=== PATIENT | male | born 1935 | race Caucasian/White ===

== ENCOUNTER 2018-01-31 05:35 | Day surgery (SDC) | payer OTHER, MEDICARE ==
[~2018-01-31] VITALS: Ht 177.8 cm; Wt 85.4 kg
[~2018-01-31 05:35] MED LIST: ACET325 PO; AGGRENOX; AMLO10 PO; ASPI81EC PO; ATOR20 PO; BENZ100A PO; CETI5 PO; CHOL10002 PO; CLOP75 PO; DIPASPER PO; DOCU100 PO; DORZOPSO LEFTEYE; FURO40 PO; Flonase 0.05% N16 GM; LAMISIL AT30 GM TOP; LASIX; LATA.005SO BOTHEYES; LAVAP17G PO; LISI20 PO; LISINOPRIL; LOPRESSOR; METO50 PO; MULVITMIND PO; Micro-K10 MEQ PO; NIFEDIPINE; NORT25 PO; OMEPRAZOLE; OXYB5 PO; OXYBUTYNIN; PANT40 PO; PYRI100 PO; RISP.5 PO; SIMBRINZA 1%-0.28 ML OP; SIMV40 PO; SPIR25 PO; TERA5 PO; TERAZOSIN; TRAV.004OP OU; Vitamin B-121000 MCG PO; WARF5 PO; [UNRECOGNIZED DRUG - OTHER]; [UNRECOGNIZED DRUG - OTHER] BOTHEYES
[2018-01-31 06:37] LABS: BASOPHILS ABSOLUTE AUTO 0.03 K/mm3 (0.00-0.23); BASOPHILS PERCENT AUTO 1 % (0-2); EOSINOPHILS ABSOLUTE AUTO 0.21 K/mm3 (0.00-0.68); EOSINOPHILS PERCENT AUTO 5 % (0-6); Hematocrit 35.6 % (37.0-53.0); IMMATURE GRAN ABSOLUTE AUTO 0.01 K/mm3 (0.00-0.10); IMMATURE GRAN PERCENT AUTO 0 % (0-1); LYMPHOCYTES ABSOLUTE AUTO 0.89 K/mm3 (0.84-5.20); LYMPHOCYTES PERCENT AUTO 21 % (21-46); MONOCYTES ABSOLUTE AUTO 0.54 K/mm3 (0.16-1.47); MONOCYTES PERCENT AUTO 13 % (4-13); Mean Corpuscular HGB 31.8 pg (26.0-34.0); Mean Corpuscular HGB Conc 33.7 g/dL (31.5-36.5); Mean Corpuscular Volume 94 fL (80-100); Mean Platelet Volume 9.9 fL (9.1-12.4); NEUTROPHILS ABSOLUTE AUTO 2.48 K/mm3 (1.96-9.15); NEUTROPHILS PERCENT AUTO 60 % (41-73); Platelet Count 122 K/mm3 (150-400); RDW Coefficient Variation 12.7 % (11.7-14.2); RDW Standard Deviation 43.9 fL (35.1-46.3); Red Blood Cell Count 3.77 M/mm3 (4.30-5.90); White Blood Cell Count 4.16 K/mm3 (4.00-11.30)
[2018-01-31 06:54] LABS: Bun/Creatinine Ratio 22.1 (12.0-20.0); Calcium, Blood 8.8 mg/dL (8.5-10.1); Creatinine, Blood 1.49 mg/dL (0.60-1.20); Potassium, Blood 4.3 mmol/L (3.5-5.5)
[2018-01-31 06:58] LABS: International Normalized Ratio 1.06
[2018-01-31] MEDS ORDERED: ESSENTIAL FATTY ACID PO (10:39)
[2018-02-02 04:39] LABS: International Normalized Ratio 1.11; Prothrombin Time Results 11.6 Sec (9.7-11.5)
== END 2018-02-02 13:41 | disposition home or self-care (01) ==
LOC: MHTC 05:35 → PCU 09:22 → MHTC 02-02 13:41
PROVIDERS: Internal Medicine Interventional Cardiology
PROC: 02HK3JZ Insertion of Pacemaker Lead into Right Ventricle, Percutaneous Approach (ICD-10-PCS; principal; 2018-01-31)
PROC: 0JH606Z Insertion of Pacemaker, Dual Chamber into Chest Subcutaneous Tissue and Fascia, Open Approach (ICD-10-PCS; principal; 2018-01-31)
PROC: 02H63JZ Insertion of Pacemaker Lead into Right Atrium, Percutaneous Approach (ICD-10-PCS; principal; 2018-01-31)
PROC: 02WA0MZ Revision of Cardiac Lead in Heart, Open Approach (ICD-10-PCS; 2018-02-01)
DX: I49.5 Sick sinus syndrome (principal); I45.5 Other specified heart block; T82.120A Displacement of cardiac electrode, initial encounter; R53.83 Other fatigue; I48.0 Paroxysmal atrial fibrillation; I48.92 Unspecified atrial flutter; G47.33 Obstructive sleep apnea (adult) (pediatric); E11.22 Type 2 diabetes mellitus with diabetic chronic kidney disease; I13.10 Hypertensive heart and chronic kidney disease without heart failure, with stage 1 through stage 4 chronic kidney disease, or unspecified chronic kidney disease; N18.3 Chronic kidney disease, stage 3 (moderate); I87.2 Venous insufficiency (chronic) (peripheral); E78.5 Hyperlipidemia, unspecified; Z79.899 Other long term (current) drug therapy; Z86.73 Personal history of transient ischemic attack (TIA), and cerebral infarction without residual deficits; Z90.5 Acquired absence of kidney; Z87.891 Personal history of nicotine dependence; Z95.2 Presence of prosthetic heart valve
CPT/HCPCS: 33208; 33215; 36415; 71045; 80048; 85025; 85610; 94762; 99152; 99153; C1781; C1785; C1898; J0690; J1644; J2250; J2405; J3010; J7030; J7040

== ENCOUNTER 2019-11-13 06:54 | Day surgery (SDC) | payer OTHER ==
[~2019-11-13] VITALS: Ht 177.8 cm; Wt 93.9 kg
[~2019-11-13 06:54] MED LIST changes: +ELIQUIS2.5 MG; +ESSENTIAL FATTY ACID PO
[2019-11-13] MEDS ORDERED: METOPROLOL ER-1 EAC1 (07:46)
== END 2019-11-13 09:33 | disposition home or self-care (01) ==
LOC: ORSCSDS 06:54
PROVIDERS: Internal Medicine Gastroenterology
PROC: 0DBK8ZX Excision of Ascending Colon, Via Natural or Artificial Opening Endoscopic, Diagnostic (ICD-10-PCS; principal; 2019-11-13 08:30)
PROC: 0DBL8ZX Excision of Transverse Colon, Via Natural or Artificial Opening Endoscopic, Diagnostic (ICD-10-PCS; principal; 2019-11-13 08:30)
PROC: 0DBP8ZX Excision of Rectum, Via Natural or Artificial Opening Endoscopic, Diagnostic (ICD-10-PCS; principal; 2019-11-13 08:30)
DX: K92.1 Melena (principal); D12.3 Benign neoplasm of transverse colon; D12.2 Benign neoplasm of ascending colon; K62.1 Rectal polyp; K64.8 Other hemorrhoids; Z87.891 Personal history of nicotine dependence; E11.22 Type 2 diabetes mellitus with diabetic chronic kidney disease; I12.9 Hypertensive chronic kidney disease with stage 1 through stage 4 chronic kidney disease, or unspecified chronic kidney disease; N18.3 Chronic kidney disease, stage 3 (moderate); Z79.01 Long term (current) use of anticoagulants; Z79.84 Long term (current) use of oral hypoglycemic drugs; Z79.899 Other long term (current) drug therapy
CPT/HCPCS: 82947; 88305; J2405; J2704; J7120

== ENCOUNTER 2020-10-13 18:44 | Inpatient (IN) | payer OTHER, MEDICARE ==
[~2020-10-13] VITALS: Ht 177.8 cm; Wt 91.5 kg
[~2020-10-13 18:44] MED LIST changes: -AMLO10 PO; -CETI5 PO; -ELIQUIS2.5 MG; -FURO40 PO; -TERA5 PO; -Vitamin B-121000 MCG PO
[2020-10-13 21:35] LABS: BASOPHILS ABSOLUTE AUTO 0.03 K/mm3 (0.00-0.23); BASOPHILS PERCENT AUTO 1 % (0-2); EOSINOPHILS ABSOLUTE AUTO 0.04 K/mm3 (0.00-0.68); EOSINOPHILS PERCENT AUTO 1 % (0-6); Hematocrit 28.9 % (37.0-53.0); Hemoglobin 9.8 g/dL (13.5-17.5); IMMATURE GRAN ABSOLUTE AUTO 0.04 K/mm3 (0.00-0.10); IMMATURE GRAN PERCENT AUTO 1 % (0-1); LYMPHOCYTES ABSOLUTE AUTO 0.69 K/mm3 (0.84-5.20); LYMPHOCYTES PERCENT AUTO 15 % (21-46); MONOCYTES PERCENT AUTO 7 % (4-13); Mean Corpuscular HGB 31.8 pg (26.0-34.0); Mean Corpuscular HGB Conc 33.9 g/dL (31.5-36.5); Mean Corpuscular Volume 94 fL (80-100); Mean Platelet Volume 9.2 fL (9.1-12.4); NEUTROPHILS ABSOLUTE AUTO 3.48 K/mm3 (1.96-9.15); NEUTROPHILS PERCENT AUTO 76 % (41-73); Platelet Count 100 K/mm3 (150-400); RDW Coefficient Variation 12.2 % (11.7-14.2); RDW Standard Deviation 42.1 fL (35.1-46.3); Red Blood Cell Count 3.08 M/mm3 (4.30-5.90); White Blood Cell Count 4.58 K/mm3 (4.00-11.30)
[2020-10-13 21:52] LABS: Albumin, Blood 3.5 g/dL (3.4-5.0); Albumin/Globulin Ratio 1.4 (0.8-1.8); Bilirubin, Total 0.4 mg/dL (0.1-1.0); Bun/Creatinine Ratio 13.8 (12.0-20.0); Calcium, Blood 8.5 mg/dL (8.5-10.1); Creatinine, Blood 3.84 mg/dL (0.60-1.20); Globulin, Blood 2.5 g/dL (2.2-4.0); Potassium, Blood 4.4 mmol/L (3.5-5.5)
[2020-10-13] MEDS ORDERED: FURO20 PO (22:48)
[2020-10-13] MEDS ORDERED: AMLO10 PO (22:48)
[2020-10-13] MEDS ORDERED: Terazosin HCl10 MG PO (22:53)
[2020-10-13] MEDS ORDERED: Vitamin B-121000 MCG PO (22:53)
[2020-10-13] MEDS ORDERED: LISI20 PO (22:53)
[2020-10-13] MEDS ORDERED: ATOR20 PO (22:54)
[2020-10-13] MEDS ORDERED: ZYRTEC10 M2 PO (22:54)
[2020-10-13] MEDS ORDERED: ELIQUIS2.5 MG PO (22:54)
[2020-10-13] MEDS ORDERED: Lopressor 25 mg25 MG PO (22:55)
[2020-10-13] MEDS ORDERED: ONDA4ODT SL (22:56)
[2020-10-13] MEDS ORDERED: DORZOLAMIDE-TIM10 ML BOTHEYES (22:57)
[2020-10-14 05:40] LABS: BASOPHILS ABSOLUTE AUTO 0.01 K/mm3 (0.00-0.23); BASOPHILS PERCENT AUTO 0 % (0-2); EOSINOPHILS ABSOLUTE AUTO 0.06 K/mm3 (0.00-0.68); EOSINOPHILS PERCENT AUTO 1 % (0-6); Hematocrit 27.2 % (37.0-53.0); Hemoglobin 9.2 g/dL (13.5-17.5); IMMATURE GRAN ABSOLUTE AUTO 0.04 K/mm3 (0.00-0.10); IMMATURE GRAN PERCENT AUTO 1 % (0-1); LYMPHOCYTES ABSOLUTE AUTO 0.54 K/mm3 (0.84-5.20); LYMPHOCYTES PERCENT AUTO 7 % (21-46); MONOCYTES ABSOLUTE AUTO 0.57 K/mm3 (0.16-1.47); MONOCYTES PERCENT AUTO 7 % (4-13); Mean Corpuscular HGB 31.9 pg (26.0-34.0); Mean Corpuscular HGB Conc 33.8 g/dL (31.5-36.5); Mean Corpuscular Volume 94 fL (80-100); Mean Platelet Volume 9.2 fL (9.1-12.4); NEUTROPHILS ABSOLUTE AUTO 6.48 K/mm3 (1.96-9.15); NEUTROPHILS PERCENT AUTO 84 % (41-73); Platelet Count 89 K/mm3 (150-400); RDW Standard Deviation 41.9 fL (35.1-46.3); Red Blood Cell Count 2.88 M/mm3 (4.30-5.90)
[2020-10-14 06:17] LABS: Bun/Creatinine Ratio 14.7 (12.0-20.0); Calcium, Blood 8.2 mg/dL (8.5-10.1); Creatinine, Blood 3.87 mg/dL (0.60-1.20); Potassium, Blood 4.6 mmol/L (3.5-5.5)
--- NOTE | 2020-10-14 06:27 | NUR ---
WIRE TINNER SUMMARY PT ADMITTED FROM ED. A&OX4, ABLE TO MAKE NEEDS KNOWN. PLEASANT AND COOPERATIVE TO CARE. MEDICATED FOR R HIP PAIN PER EMAR. NON WEIGHT BEARING ON RLE D/T R HIP FX. 2P MAX ASSIST. USES URINAL WITH ASSISTANCE. PT ON 2LPM O2 VIA NC. USES CPAP AT NIGHT. DENIES CP, SOB, OR N&V. BED AT LOWEST POSITION, CALL LIGHT WITHIN REACH.
--- NOTE | 2020-10-14 13:34 | NUR ---
Echocardiogram completed.
--- NOTE | 2020-10-14 17:58 | NUR ---
SHIFT SUMMARY- PT IS A/O, PLESANT AND COOPERATIVE. HE IS RECIEVING PAIN MEDICATIONS NEEDED. HE HAD AN ELEVATED TEMP AND WAS TREATED WITH TYLENOL. HE IS EATING AND DRINKING WELL. ORTHO CONSULLT TODAY, PLAN TO TAKE TO SURGERY TOMORROW. BLADDER SCAN SHOWED <250.
[2020-10-15 05:52] LABS: Hematocrit 25.4 % (37.0-53.0); Hemoglobin 8.7 g/dL (13.5-17.5); Mean Corpuscular HGB 32.3 pg (26.0-34.0); Mean Corpuscular HGB Conc 34.3 g/dL (31.5-36.5); Mean Corpuscular Volume 94 fL (80-100); Mean Platelet Volume 9.4 fL (9.1-12.4); Platelet Count 77 K/mm3 (150-400); RDW Coefficient Variation 12.4 % (11.7-14.2); RDW Standard Deviation 42.5 fL (35.1-46.3); Red Blood Cell Count 2.69 M/mm3 (4.30-5.90); White Blood Cell Count 5.37 K/mm3 (4.00-11.30)
[2020-10-15 06:13] LABS: Bun/Creatinine Ratio 15.4 (12.0-20.0); Creatinine, Blood 3.84 mg/dL (0.60-1.20); Potassium, Blood 4.3 mmol/L (3.5-5.5)
--- NOTE | 2020-10-15 10:16 | NUR ---
0940-PT HERE FOR PRE OP HOLDING. DR. FIGUEREDO HERE. COVID SWAB SENT TO LAB AND TYPE AND SCREEN DRAWN BY LAB
[2020-10-15 11:25] LABS: Influenza A, PCR Negative (NEGATIVE); Influenza B, PCR Negative (NEGATIVE); Resp Syncytial Virus, PCR Negative (NEGATIVE); SARS-Cov-2 (COVID-19) PCR, MMC Negative (NEGATIVE)
--- NOTE | 2020-10-15 11:28 | NUR ---
PT LEFT FOR PROCEDURE ON HIP. REPORT CALLED TO OCTAVIO WOOD ON SURGICAL FLOOR
--- NOTE | 2020-10-15 17:17 | NUR ---
SHIFT SUMMARY R HIP FX POD0, A/O X 4, VSS. ARRIVED TO UNIT @ 1315, SLEPT FOR FIRST 2 HOURS, TOLERATING PO, NO POST OP VOID YET. DENIES PAIN, ENCOURAGED TO REPORT WHEN PAIN STARTS SETTING IN. CALL LIGHT IN REACH, WILL CONTINUE TO MONITOR AND REPORT TO ONCOMING NOC RN.
--- NOTE | 2020-10-15 19:42 | NUR ---
10/14 [facility] SHIFT SUMMARY PT IS A 84 Y/O MALE, ADMITTED FOR A CLOSED R HIP FX. HE IS A&O X 4, CURRENTLY ON BEDREST. PT HAS BEEN NPO SINCE MIDNIGHT IN PREP FOR A SURGICAL REPAIR OF THE HIP FX. PT WAS MEDICATED 3X FOR PAIN WITH PRN IV DILAUDID, AND FREQUENTLY ASKED FOR PAIN MEDS BEFORE FALLING BACK ASLEEP. NO C/O NAUSEA OR SOB. PT REMAINED ON CPAP WHILE SLEEPING. SATS REMAINED > 91%. VITAL SIGNS STABLE. NO OTHER ACUTE CHANGES IN PT CONDITION NOTED. REPORT GIVEN TO ONCOMING RN. SHIFT SUMMARY DOCUMENTED LATE DUE TO [employer] ISSUES.
[2020-10-16 04:42] LABS: Hemoglobin 6.2 g/dL (13.5-17.5); Mean Corpuscular HGB 32.6 pg (26.0-34.0); Mean Corpuscular HGB Conc 34.6 g/dL (31.5-36.5); Mean Corpuscular Volume 94 fL (80-100); Mean Platelet Volume 9.4 fL (9.1-12.4); Platelet Count 76 K/mm3 (150-400); RDW Coefficient Variation 12.5 % (11.7-14.2); RDW Standard Deviation 43.3 fL (35.1-46.3)
[2020-10-16 04:58] LABS: Hematocrit 17.9 % (37.0-53.0)
[2020-10-16 05:05] LABS: Bun/Creatinine Ratio 15.3 (12.0-20.0); Calcium, Blood 7.6 mg/dL (8.5-10.1); Creatinine, Blood 3.92 mg/dL (0.60-1.20); Potassium, Blood 4.8 mmol/L (3.5-5.5)
--- NOTE | 2020-10-16 06:35 | NUR ---
LAB CALLED WITH CRITICAL HGB AND HCT THIS AM, DR MIRAMONTES WAS NOTIFIED AND ORDER FOR 1 U PRBCS. THAT IS TRANSFUSING NOW, NO ADVERS REACTIONS. PATIENT WAS ABLE TO STAND AT THE BEDSIDE TO VOID. HE USED A GAIT BELT AND A WALKER. HE FOLLOWS DIRECTIONS WELL. CALL LIGHT IN REACH. PATIENT IS VERY HUNGRY FOR BREAKFAST.
[2020-10-16 11:34] LABS: Hematocrit 22.9 % (37.0-53.0); Hemoglobin 7.6 g/dL (13.5-17.5)
--- NOTE | 2020-10-16 16:01 | NUR ---
Shift summary Tylenol and Oxycodone given once this shift for pain. Patient worked with physical therapy today and got up into the recliner chair with a one person assist. Bladder scan this afternoon showed 971. Straight catheter emptied 1020cc clear yellow urine. Call placed to hospitalist and order for Flomax and PRN straight cath/bladder scan obtained. Patient has been AOx4 and cooperative with care. Call light within patient reach.
--- NOTE | 2020-10-17 01:00 | NUR ---
PATIENT HAS BEEN HAVING AN INCREASE IN HIS PAIN AFTER BEING UP IN THE CHAIR FOR 3 HOURS. HE IS ALSO HAVING NAUSEA, CHILLS, AND NIGHT SWEATS. HE IS AFEBRILE. PATIENT WAS GIVEN NARCOTICS AND ZOFRAN. PATIENT WAS REPOSITIONED SEVERAL TIMES TO GET HIM COMFORTABLE..
--- NOTE | 2020-10-17 05:16 | NUR ---
PATIENT HAS NOW BEEN ASLEEP FOR 4 HOURS, WE WILL CHECK HIS BLADDER VIA THE SCANNER AND SEE IF HE NEEDS TO BE STRAIGHT CATHED AGAIN THIS SHIFT. NO ACUTE CHANGES. CALL LIGHT IN REACH.
[2020-10-17 06:17] LABS: Hematocrit 21.5 % (37.0-53.0); Hemoglobin 7.1 g/dL (13.5-17.5); Mean Corpuscular HGB 31.4 pg (26.0-34.0); Mean Corpuscular Volume 95 fL (80-100); Mean Platelet Volume 9.4 fL (9.1-12.4); Platelet Count 85 K/mm3 (150-400); RDW Coefficient Variation 12.9 % (11.7-14.2); RDW Standard Deviation 44.3 fL (35.1-46.3); Red Blood Cell Count 2.26 M/mm3 (4.30-5.90); White Blood Cell Count 5.13 K/mm3 (4.00-11.30)
[2020-10-17 06:31] LABS: Bun/Creatinine Ratio 16.9 (12.0-20.0); Creatinine, Blood 3.79 mg/dL (0.60-1.20); Potassium, Blood 4.4 mmol/L (3.5-5.5)
[2020-10-17 16:44] LABS: BASOPHILS ABSOLUTE AUTO 0.03 K/mm3 (0.00-0.23); BASOPHILS PERCENT AUTO 0 % (0-2); EOSINOPHILS ABSOLUTE AUTO 0.37 K/mm3 (0.00-0.68); EOSINOPHILS PERCENT AUTO 5 % (0-6); Hematocrit 23.5 % (37.0-53.0); Hemoglobin 7.9 g/dL (13.5-17.5); IMMATURE GRAN ABSOLUTE AUTO 0.05 K/mm3 (0.00-0.10); IMMATURE GRAN PERCENT AUTO 1 % (0-1); LYMPHOCYTES ABSOLUTE AUTO 0.82 K/mm3 (0.84-5.20); LYMPHOCYTES PERCENT AUTO 12 % (21-46); MONOCYTES ABSOLUTE AUTO 0.96 K/mm3 (0.16-1.47); MONOCYTES PERCENT AUTO 14 % (4-13); Mean Corpuscular HGB 32.2 pg (26.0-34.0); Mean Corpuscular HGB Conc 33.6 g/dL (31.5-36.5); Mean Corpuscular Volume 96 fL (80-100); Mean Platelet Volume 9.2 fL (9.1-12.4); NEUTROPHILS ABSOLUTE AUTO 4.59 K/mm3 (1.96-9.15); NEUTROPHILS PERCENT AUTO 67 % (41-73); Platelet Count 95 K/mm3 (150-400); RDW Coefficient Variation 12.9 % (11.7-14.2); RDW Standard Deviation 44.4 fL (35.1-46.3); Red Blood Cell Count 2.45 M/mm3 (4.30-5.90); White Blood Cell Count 6.82 K/mm3 (4.00-11.30)
--- NOTE | 2020-10-17 19:30 | NUR ---
SUMMARY NO ACUTE CHANGES T/O SHIFT. PT UP SEVERAL TIMES TO CHAIR AND TO STAND AND VOID AT BEDSIDE. PT VOIDING 75-180 ML AT A TIME. BS SHOWED LESS THAN 400 ML. MEDICATED PER ORDERS FOR PAIN T/O SHIFT. PT TOLERATING DIET. SOB W/EXERTION. PT HAS PRODUCTIVE COUGH, PT REPORTS SINUS DRAINAGE. USES CALL LIGHT APPROPRIATELY. CALL LIGHT IN REACH.
--- NOTE | 2020-10-18 02:00 | NUR ---
VOMITING AND ABD PAIN C/O N/V AT 2130HRS, STATED THAT HE THOUGHT IT WAS "HEARTBURN". ENTERED ROOM TO ASSESS, FOUND PT VOMITING INTO EMESIS BAG, 400ML CHARTED OUT. GIVEN ZOFRAN 4MG IVP. 0030HRS CALLED OUT C/O N/V, MD CONTACTED AND NEW ORDERS RECEIVED. MEDICATED WITH COMPAZINE PER MD ORDERS AND 200ML CHARTED OUT. 0200HRS, C/O ABD PAIN 6/10, AND N/V, GIVEN 0.2MG DILAUID AND PHENERGAN 25MG IVP PER MD ORDERS. SAFETY MEASURES IN PLACE. WILL CONTINUE TO MONITOR.
--- NOTE | 2020-10-18 04:30 | NUR ---
SHIFT SUMMARY LYING IN SEMI FOWLERS WITH EYES CLOSED. WOKE UP EARLIER AND TRIED TO GET OOB WITHOUT ASSISTANCE. NURSING ASSISTED PT OOB ABD STOOD AT EDGE OF BED TO USE URINAL. ASSISTED BACK TO BED AND REPOSITIONED FOR COMFORT. REMINANT VOMIT IN CHEN CLEANED AND GOWN CHANGED. INCREASED ABDOMINAL FIRMNESS NOTED. STATES LAST BM WAS ON THE . WILL GET BOWEL REGIMIN STARTED THIS AM. DENIES PAIN, DISCOMFORT OF FURTHER NEEDS AT THIS TIME. SAFETY MEASURES IN PLACE. WILL CONTINUE TO MONITOR AND GIVE HAND OFF TO ONCOMING SHIFT USING SBAR.
[2020-10-18 04:47] LABS: Hematocrit 28.3 % (37.0-53.0); Hemoglobin 9.4 g/dL (13.5-17.5); Mean Corpuscular HGB 31.3 pg (26.0-34.0); Mean Corpuscular HGB Conc 33.2 g/dL (31.5-36.5); Mean Corpuscular Volume 94 fL (80-100); Mean Platelet Volume 9.1 fL (9.1-12.4); Platelet Count 127 K/mm3 (150-400); RDW Coefficient Variation 12.8 % (11.7-14.2); RDW Standard Deviation 44.1 fL (35.1-46.3); White Blood Cell Count 8.86 K/mm3 (4.00-11.30)
--- NOTE | 2020-10-18 12:01 | NUR ---
PT HAVING BURGUNDY RED, FOUL SMELLING EMESIS. SPOKE TO DR FORDE THIS MORNING REGARDING 500 ML RED EMESIS, ORDERS OBTAINED. PT HAD SECOND EPISODE OF 500 ML BURGUNDY RED EMESIS. PT LETHARGIC AND PALE. BP 124/67. HR 74. ORDERS PENDING.
[2020-10-18 12:39] LABS: Hemoglobin 8.7 g/dL (13.5-17.5)
--- NOTE | 2020-10-18 13:09 | NUR ---
REPORT GIVEN TO NINA ABEL IN ICU.
--- NOTE | 2020-10-18 13:58 | NUR ---
TRANSFER NOTE- PT TRANSFERRED TO ICU FROM SURGICAL FLOOR IN BED. 4 STAFF TRANSFERRED TO BED WITHOUT PROBLEMS. PT WITH EYES CLOSED, ANSWERS QUESTIONS EASILY, COOPERATIVE. NSR WITH PACS. BP STABLE. COLOR PALE, SKIN W/D. NAUSEATED. ABDOMEN LARGE, SOFT, NO BOWEL SOUNDS. DENIES NEED TO VOID. RIGHT HIP DRSG DI. JD HOSE ON, SCDS ON. RESPIRATIONS UNLABORED, AFEBRILE
--- NOTE | 2020-10-18 14:46 | NUR ---
POWER GLIDE PLACED BY ESTEPHANIA WOOD. UPDATE TO DR. FORDE. PT NAUSEATED. ORDERS FOR ZOFRAN, NG PLACEMENT. NG PLACED LEFT NARE-AIR BOLUS HEARD OVER STOMACH, BLOODY DRAINAGE, LARGE AMOUNT BEING SUCTIONED. HAD EMESIS DURING PLACMENT OF GASTRIC CONTENTS-ABOUT 200 CC BLOODY EMESIS. VSS. LABS SENT
--- NOTE | 2020-10-18 14:53 | NUR ---
UPDATE TO DR. FORDE-NGT DRAINAGE 60 CC, CONTINUES TO DRAIN. PT RESTING NOW, VSS. AWAITING LABS
[2020-10-18 15:21] LABS: Albumin, Blood 2.4 g/dL (3.4-5.0); Albumin/Globulin Ratio 0.8 (0.8-1.8); Bilirubin, Total 0.5 mg/dL (0.1-1.0); Bun/Creatinine Ratio 17.4 (12.0-20.0); Calcium, Blood 8.4 mg/dL (8.5-10.1); Creatinine, Blood 3.68 mg/dL (0.60-1.20); Globulin, Blood 2.9 g/dL (2.2-4.0); Potassium, Blood 4.9 mmol/L (3.5-5.5); Total Protein, Blood 5.3 g/dL (6.4-8.2)
[2020-10-18 15:26] LABS: Hemoglobin 8.2 g/dL (13.5-17.5)
--- NOTE | 2020-10-18 16:15 | NUR ---
STRAIGHT CATH DONE-TOLERATED WELL. STATES NAUSEA RESOLVED. NGT TO INTERMITTENT SUCTION-NOT DRAINING ANY MORE AFTER THE 1200 CC TOTAL. H/H DRAWN AND SENT. PT AWAKE, TALKING ON PHONE.
[2020-10-18 16:24] LABS: Hematocrit 24.5 % (37.0-53.0); Hemoglobin 8.1 g/dL (13.5-17.5)
--- NOTE | 2020-10-18 17:04 | NUR ---
BLOOD COUNT STABLE. VSS. CONTINUE TO MONITOR
--- NOTE | 2020-10-18 18:31 | NUR ---
LABS CALLED TO DR. FORDE. H/H STABLE. NO FURTHER S/S BLEEDING. ABDOMEN LARGE BUT SOFT. NAUSEA RESOLVED. REPOSITIONED. DENIES COMPLAINTS EXCEPT DRY MOUTH-ORAL CARE DONE. VSS. LABS TO BE REPEATED AT 2030
--- NOTE | 2020-10-18 20:00 | NUR ---
ASSUMED CARE AFTER BEDSIDE REPORT. PT ALERT, CO BACK & HIP PAIN. PT IS NP0 AND NO PAIN MEDS AVAIL. SPOKE Erasmo LOPEZ NP AND ORDER REC'D FOR DILAUDID 0.5MG. NG TO LIZZIE RAE. VSS, ON RA, COUGH & DEEP BREATHING ENCOURAGED.
[2020-10-18 20:49] LABS: Hematocrit 22.2 % (37.0-53.0); Hemoglobin 7.4 g/dL (13.5-17.5)
--- NOTE | 2020-10-18 22:00 | NUR ---
H+H BACK, WILL RECHECK AT MIDNOC. BLADDER SCAN 360CC, WILL STRAIGHT CATH IF NO VOID.
[2020-10-19 00:35] LABS: Hematocrit 21.4 % (37.0-53.0); Hemoglobin 7.1 g/dL (13.5-17.5)
--- NOTE | 2020-10-19 01:20 | NUR ---
ORDER REC'D TO TRANSFUSE 1 UNIT PRBC. NG HAS DRAINED 900ML OF DK MAROON, FOUL ODOR DRNG. PT IS NOTED TO PASS FLATUS, NO STOOL. NG TUBE REDRESSED/SECURED. PT ACKNOWLEDGED THAT HE HAD PARTIALLY REMOVED R HIP DRSG. UNABLE TO REPLACE, SITE CLEANSED W CHLORHEXADINE AND SURGICAL DRSG APPLIED. INCISION WO REDNESS OR INFLAMMATION, WELL APPROX. BOOKER CATH PLACED WO DIFF. PT CALLS OFTED FOR REPOSITIONING, ABLE TO REACH & ASSIST W TURNS.
[2020-10-19 05:46] LABS: Source, Urine Catheter
[2020-10-19 05:49] LABS: Hematocrit 24.3 % (37.0-53.0); Hemoglobin 8.2 g/dL (13.5-17.5); Mean Corpuscular HGB 31.7 pg (26.0-34.0); Mean Corpuscular HGB Conc 33.7 g/dL (31.5-36.5); Mean Corpuscular Volume 94 fL (80-100); Platelet Count 139 K/mm3 (150-400); RDW Coefficient Variation 13.1 % (11.7-14.2); RDW Standard Deviation 44.4 fL (35.1-46.3); Red Blood Cell Count 2.59 M/mm3 (4.30-5.90); White Blood Cell Count 8.85 K/mm3 (4.00-11.30)
[2020-10-19 05:54] LABS: Appearance, Urine Clear (Clear); Bilirubin, Urine Neg (Neg); Blood, Urine 2+ (Neg); Color, Urine Yellow (P-Yellow); Glucose Qualitative, Urine Neg (Neg); Ketones, Urine Neg (Neg); Leukocyte Esterase, Urine Neg (Neg); Nitrite, Urine Neg (Neg); Protein, Urine 3+ (Neg); Urobilinogen, Urine NORM (Normal)
--- NOTE | 2020-10-19 06:00 | NUR ---
PT HAS BEEN RESTFUL SINCE 0200. HAS HAD TOTAL 900ML DK DRNG FROM NG, BUT ONLY 100 ML SINCE APPROX 0100. STATES ABD IS LESS TENDER, AND NOTED PT HAS NOT CO PAIN, AND REQ ONLY 2 DOSES OF DILAUDED. NO OTHER CHANGE IN STATUS.
[2020-10-19 06:05] LABS: Amorphous Light (0-Heavy); Bacteria Few /hpf; Mucus Light (0-Heavy); Squamous Epithelial Cells Rare /hpf (Few); White Blood Cells, Urine 0-2 /hpf (0-5)
[2020-10-19 06:06] LABS: Albumin, Blood 2.2 g/dL (3.4-5.0); Albumin/Globulin Ratio 0.8 (0.8-1.8); Bilirubin, Total 0.7 mg/dL (0.1-1.0); Bun/Creatinine Ratio 17.4 (12.0-20.0); Calcium, Blood 8.4 mg/dL (8.5-10.1); Creatinine, Blood 3.85 mg/dL (0.60-1.20); Globulin, Blood 2.7 g/dL (2.2-4.0); Potassium, Blood 4.8 mmol/L (3.5-5.5); Total Protein, Blood 4.9 g/dL (6.4-8.2)
[2020-10-19 06:28] LABS: BAND PERCENT MAN 23 % (0-8); BASOPHILS PERCENT MAN 0 % (0-2); EOSINOPHILS ABSOLUTE MAN 0.08 K/mm3 (0.00-0.68); EOSINOPHILS PERCENT MAN 1 % (0-6); LYMPHOCYTES ABSOLUTE MAN 0.61 K/mm3 (0.84-5.20); LYMPHOCYTES PERCENT MAN 7 % (21-46); MONOCYTES ABSOLUTE MAN 1.06 K/mm3 (0.16-1.47); MONOCYTES PERCENT MAN 12 % (4-13); NEUTROPHILS ABSOLUTE MAN 7.08 K/mm3 (1.96-9.15); SEG NEUTROPHILS PERCENT MAN 57 % (41-73); TOTAL CELLS COUNTED 100
--- NOTE | 2020-10-19 08:10 | NUR ---
ASSUMED CARE PT. ALERT AND ORIENTED THIS AM, ASSISTED TO REPOSITION FOR COMFORT. PT. REFUSES PAIN MEDICINE AT THIS TIME. PT. NOTED TO HAVE INCREASED WOB, COARSE T/O. CONCERNS FOR ASPIRATION. DR. FORDE NOTIFIED, PLANS FOR CHEST XRAY. PT. CONITNUES WITH DARK BROWN/MAROON LIQUID FROM OG TUBE. PT. ABD SOFT, DENIES PAIN WITH PALPATION. REMAINS ON PROTONIX GTT THIS AM. VSS AT THIS TIME. CALL LIGHT IN REACH.
--- NOTE | 2020-10-19 10:54 | NUR ---
ROUNDED ON PT RESTING COMFORTABLY IN BED. AWAITING GI CONSULT
[2020-10-19 12:57] LABS: Hematocrit 24.5 % (37.0-53.0); Hemoglobin 8.1 g/dL (13.5-17.5)
--- NOTE | 2020-10-19 17:08 | NUR ---
SHIFT SUMMARY ASSUMED CARE OF PT AT 1100. REPORT FROM JANETT WOOD. PT A&OX 3. ANSWERS QUESTIONS APPROPRIATELY, FOLLOWS COMMANDS. PT C/O INTERMITTANT NAUSEA AND RIGHT HIP PAIN. MEDICATED c ZOFRAN AND DILAUDID ORDERED c GOOD RELIEF. PROTONIX GTT CONTINUES TO INFUSE. MINIMAL OUTPUT FROM NGT THIS SHIFT. NO BM. VSS. 725 ML CLEAR YELLOW URINE OUT, CATH PATENT AND DRAINING TO GRAVITY. WILL CONTINUE TO MONITOR UNTIL REPORT TO ONCOMING NURSE.
--- NOTE | 2020-10-19 19:05 | NUR ---
ASSUMED PT CARE BEDSIDE REPORT WITH TAMIKO WOOD AT 1855. ASSUMED PT CARE. PT ALERT AND ORIENTED. PLEASANT. PT ON RA, SATS >92%, LUNG SOUNDS COARSE. OCCASIONAL PRODUCTIVE COUGH. PT CPAP AT BEDSIDE BUT PT STATES SINCE HE IS SITTING UP HE DOESNT NEED IT. HR SR 80S, BP STABLE. SKIN PALE, GROSSLY INTACT. SURGICAL SITE TO RIGHT HIP FROM HEMIARTHROPLASTY. DRESSING C/D/I. PT MOVES ALL EXTREMITIES, LIMITED TO RIGHT LEG DUE TO SURGERY. PT WORKING WITH PT/OT DURING DAY. PULSES INTACT. NO EDEMA. NG TO RIGHT NARE TO LIS, DARK GREENISH OUTPUT TO TUBING. BOWEL TONES PRESENT. ABD SOFT. BOOKER DRAINING CLEAR YELLOW URINE. 22G TO RIGHT HAND, SL, FLUSHES WELL, DRESSING C/D/I. POWER GLIDE TO LEFT UPPER ARM WITH NS INF @ 100ML/HR AND PROTONIX INF @ 10ML/HR. CALL LIGHT IN REACH, SIDE RAILS UP. SEE FULL SHIFT ASSESSMENT.
--- NOTE | 2020-10-19 20:00 | NUR ---
DR LUGO TO ROOM FOR EVAL. LABS ORDERED. PLAN FOR SCOPING TOMORROW.
[2020-10-20 04:53] LABS: Hematocrit 22.2 % (37.0-53.0); Hemoglobin 7.4 g/dL (13.5-17.5); Mean Corpuscular HGB 31.9 pg (26.0-34.0); Mean Corpuscular HGB Conc 33.3 g/dL (31.5-36.5); Mean Corpuscular Volume 96 fL (80-100); Mean Platelet Volume 8.3 fL (9.1-12.4); Platelet Count 157 K/mm3 (150-400); RDW Coefficient Variation 13.9 % (11.7-14.2); RDW Standard Deviation 47.6 fL (35.1-46.3); Red Blood Cell Count 2.32 M/mm3 (4.30-5.90); White Blood Cell Count 7.47 K/mm3 (4.00-11.30)
[2020-10-20 05:07] LABS: International Normalized Ratio 1.25; Prothrombin Time Results 13.2 Sec (9.7-11.5)
[2020-10-20 05:19] LABS: Albumin/Globulin Ratio 0.8 (0.8-1.8); Bilirubin, Total 0.3 mg/dL (0.1-1.0); Bun/Creatinine Ratio 18.4 (12.0-20.0); Calcium, Blood 8.4 mg/dL (8.5-10.1); Creatinine, Blood 3.64 mg/dL (0.60-1.20); Globulin, Blood 2.6 g/dL (2.2-4.0); Potassium, Blood 4.3 mmol/L (3.5-5.5); Total Protein, Blood 4.6 g/dL (6.4-8.2)
[2020-10-20 05:28] LABS: BAND PERCENT MAN 11 % (0-8); BASOPHILS PERCENT MAN 0 % (0-2); EOSINOPHILS ABSOLUTE MAN 0.29 K/mm3 (0.00-0.68); EOSINOPHILS PERCENT MAN 4 % (0-6); LYMPHOCYTES ABSOLUTE MAN 0.44 K/mm3 (0.84-5.20); LYMPHOCYTES PERCENT MAN 6 % (21-46); MONOCYTES ABSOLUTE MAN 1.41 K/mm3 (0.16-1.47); MONOCYTES PERCENT MAN 19 % (4-13); MYELOCYTE ABSOLUTE MAN 0.07 K/mm3 (0.00-0.00); MYELOCYTE PERCENT MAN 1 % (0-0); NEUTROPHILS ABSOLUTE MAN 5.22 K/mm3 (1.96-9.15); SEG NEUTROPHILS PERCENT MAN 59 % (41-73); TOTAL CELLS COUNTED 100
--- NOTE | 2020-10-20 05:42 | NUR ---
SHIFT SUMMARY PT HAD WONDERFUL SHIFT. REMAINED ALERT AND ORIENTED. OCCASSIONAL ABD PAIN, HIP/GROIN PAIN. MANAGED WITH REPOSITIONING AND DILAUDID. PT HAD SOME NAUSEA. TREATED WITH ZOFRAN. NO EMESIS. 1450 ML GREENISH/MAROON DRAINAGE FROM NG TUBE. SKIN PALE, DRY AND INTACT ASIDE FROM SURGICAL DRESSING TO RIGHT HIP (ADHESIVE DRESSING INTACT). TOLERATES ICE CHIPS. PT MOVES ALL EXTREMITIES INDEPENDENTLY, WEAKNESS AND DECREASED ROM TO RIGHT LEG S/P HEMIARTHROPLASTY. PULSES EQUAL. BP STABLE. HR SR 78. RA SATS >92%, LUNG SOUNDS COARSE THROUGHOUT. OCCASSIONAL PRODUCTIVE COUGH. ABD SOFT, BOWEL TONES ACTIVE. POWER GLIDE TO LEFT UPPER ARM INTACT, DRESSING C/D/I, UNABLE TO DRAW BLOOD. PLAN FOR UPPER GI TODAY BY DR LUGO. NS INFUSING @ 100ML/HR AND PROTONIX INFUISNG AT 10ML/HR. CALL LIGHT IN REACH. WILL REPORT TO ONCOMING SHIFT.
--- NOTE | 2020-10-20 08:00 | NUR ---
INITIAL ASSESSMENT PATIENT ALERT AND ORIENTED X 4, AFEBRILE. PATIENT DENIES PAIN. PATIENT ABLE TO HELP WITH REPOSITIONING. WEIGHT BEARING TOLERATED TO CLOSED FRACTURED R HIP. PATIENT SATTING 90% AND GREATER ON RA. PATIENT WEARS CPAP AT HOME AT NIGHT. LUNGS CLEAR T/O. PATIENT IN SR WITH OCCASIONAL PACS AND PVCS. HR 60S TO 80S. SBP 140S TO 150S. ANTI-EMBOLISM STOCKINGS IN PLACE. ABDOMEN MODERATELY DISTENDED, SOFT, WITH HYPERACTIVE BS NOTED. NG TO LIS; DRAINAGE BROWN/ GREEN IN COLOR. PATIENT DENIES NAUSEA. DATE OF LAST BM UNKNOWN. PATIENT NPO FOR PENDING EGD THIS AM. BOOKER IN PLACE DRAINING YELLOW COLORED URINE. SKIN PALE AND DRY. DRESSING TO R HIP CLEAN, DRY, INTACT. SCAR NOTED TO MID CHEST. COCCYX REDDENED. NS INFUSING AT 100 MLS/ HOUR. PROTONIX INFUSING AT 10 MLS/ HOUR. BED LOW, CALL LIGHT IN REACH. WILL CONTINUE TO MONITOR PATIENT FREQUENTLY THROUGHOUT SHIFT.
--- NOTE | 2020-10-20 08:45 | NUR ---
DR. FORDE HERE TO SEE PATIENT. DOCTOR INFORMED THAT TOPPIECE CHOPPER RN STATED PATIENT HAD 1400 MLS OF DRAINAGE FROM NG TUBE. INFORMED THAT COLOR IS BROWN/ GREEN IN COLOR AND THAT TOPPIECE CHOPPER RN REPORTS IT SMELLS LIKE STOOL. DOCTOR INFORMED THAT HEMOGLOBIN OF 7.4. NO ORDERS OBTAINED AT THIS TIME.
--- NOTE | 2020-10-20 11:22 | NUR ---
Patient confirms NPO status and agrees with scheduled surgery. INTRODUCED STAFF TO PATIENT AND BEGAIN ADMISSION PROCESS FOR PROCEDURE.
--- NOTE | 2020-10-20 11:48 | NUR ---
10/20/20 1148 Daquan Mcneil PATIENT DETERMINED TO BE ASA APPROPRIATE FOR PROPOFOL SEDATION PRIOR TO START OF PROCEDURE BY DR. PARISH Brian Block Placed3-LEAD EKG REVIEWED WITH PHYSICIAN PRIOR TO START OF PROCEDURE.History, Chart, Medications and Allergies reviewed before start of procedure.MONITOR INTACT WITH CONTINUOUS PULSE OXIMETRY AND INTERMITTENT BP.O2 VIA N/C INTACT THROUGHOUT SEDATION/PROCEDURE.
--- NOTE | 2020-10-20 12:40 | NUR ---
EGD PERFORMED BY DR. LUGO. NO INTERVENTIONS PERFORMED. DOCTOR REMOVED NG DURING PROCEDURE AND DOES NOT WANT ANOTHER PUT BACK IN. DOCTOR STATED THAT PATIENT CAN HAVE WATER AND ICE CHIPS ONLY. DOCTOR ORDERED REGLAN TO HELP WITH GI MOTILITY AND ILEUS. DOCTOR ALSO RECOMMENDED TO DECREASE ADMINISTRATION OF PAIN MEDICATIONS TO HELP WELL. DR. FORDE UPDATED ON STATUS.
--- NOTE | 2020-10-20 13:27 | NUR ---
PATIENT RESTING QUIETLY IN BED. PATIENT AFEBRILE. NO COMPLAINTS OF PAIN. SCHEDULED REGLAN GIVEN. IV PROTONIX DRIP DC'D. PATIENT DENIES NAUSA. PATIENT OCCASIONALLY PACED. HR IN THE 70S. SBP 1-TEENS TO 150S. NO OTHER ACUTE CHANGES TO NOTE ON AT THIS TIME.
--- NOTE | 2020-10-20 13:30 | NUR ---
SHIFT SUMMARY PATIENT HAS REMAINED ALERT AND ORIENTED X 4, AFEBRILE. PATIENT HAS HAD NO COMPLAINTS OF PAIN. PATIENT HAS REMAINED SATTING 90% AND GREATER ON RA. PATIENT HAS REMAINED OCCASIONALLY PACED, SR WITH OCCASIONAL PACS AND PVCS. HR 60S TO 80S. SBP 1-TEENS TO 150S. NG DC'D DURING SCOPE. NG DRAINED 400 MLS OF BROWN/ GREEN DRAINAGE BEFORE BEING REMOVED. REGLAN STARTED TO HELP WITH GI MOTILITY. NO BM THIS SHIFT. PATIENT ON WATER AND ICE ONLY AND WILL BE REASSESSED IN AM BY DR. LUGO. BOOKER DRAINED 600 MLS OF YELLOW COLORED URINE. NO CHANGE TO SKIN. DRESSING TO R HIP REMAINS CLEAN, DRY, INTACT. PROTONIX DRIP DC'D AND BID PROTONIX ORDERED. NS REMAINS INFUSING AT 100 MLS/ HOUR. NO INTERVENTION PERFORMED DURING SCOPE. PATIENT WILL BE TRANSFERRING TO SURGICAL FLOOR, ROOM 213 SHORTLY.
[2020-10-20 13:37] LABS: Hematocrit 23.7 % (37.0-53.0); Hemoglobin 7.6 g/dL (13.5-17.5)
--- NOTE | 2020-10-20 14:06 | NUR ---
REPORT GIVEN TO ASSUMING SURGICAL FLOOR NURSE.
--- NOTE | 2020-10-20 14:34 | NUR ---
PATIENT SUCCESSFULLY TRANSFERRED TO SURGICAL FLOOR.
--- NOTE | 2020-10-20 14:42 | NUR ---
TRANSFER PT TRANSERED TO UNIT FROM ICU AT APROX 1435. PT A/O X'S 4. LUNG SOUNDS DIM IN BASES, O2 SAT 90% ON RA. BOOKER PATENT, DRAINING CLEAR YELLOW URINE MEDIPORE DRESSING TO ANTERIOR R HIP C/D/I. PT REPORTS FULL SENSATION TO BLE. JD AREVALO + SCDS BLE.
[2020-10-21 04:15] LABS: Hematocrit 22.7 % (37.0-53.0); Hemoglobin 7.4 g/dL (13.5-17.5); Mean Corpuscular HGB 31.4 pg (26.0-34.0); Mean Corpuscular HGB Conc 32.6 g/dL (31.5-36.5); Mean Corpuscular Volume 96 fL (80-100); Mean Platelet Volume 8.4 fL (9.1-12.4); NRBC ABSOLUTE 0.02 K/mm3 (0.00-0.02); NRBC Auto 0.3 /100 WBC (0.0-0.2); Platelet Count 230 K/mm3 (150-400); RDW Coefficient Variation 14.2 % (11.7-14.2); RDW Standard Deviation 48.9 fL (35.1-46.3); Red Blood Cell Count 2.36 M/mm3 (4.30-5.90); White Blood Cell Count 7.93 K/mm3 (4.00-11.30)
[2020-10-21 04:32] LABS: Bun/Creatinine Ratio 17.7 (12.0-20.0); Calcium, Blood 8.3 mg/dL (8.5-10.1); Creatinine, Blood 3.45 mg/dL (0.60-1.20); Potassium, Blood 4.1 mmol/L (3.5-5.5)
--- NOTE | 2020-10-21 05:32 | NUR ---
SHIFT SUMMARY: EROS IS A&OX4. VSS, NO ACUTE EVENTS OVERNIGHT. BLADDER TRAINING COMPLETE THROUGH THE NIGHT, CATHETER PULLED THIS AM. HE REPORTS SENSATION OF BLADDER FULLNESS. HE STATES THAT HE URINATES SMALL AMOUNTS FREQUENTLY AT BASELINE. HE HAS BEEN COMPLAINING OF NAUSEA FOR WHICH HE HAS NOT GAINED RELIEF FROM ANY OF THE MEDICATIONS OR WITHOLDING PO INTAKE. HE DENIES PASSING FLATUS OR BM. ABDOMEN SOFT WITH POSITIVE BOWEL TONES. HE HAS BEEN TURNED AND REPOSITIONED FREQUENTLY, HE IS ABLE TO HELP WITH REPOSITIONING. POWERGLIDE TO MOLLY PATENT, LABS DRAWN FROM IT THIS AM. HE IS LYING IN BED WITH HIS CALL LIGHT IN REACH. WILL REPORT TO DAY SHIFT RN.
--- NOTE | 2020-10-21 17:04 | NUR ---
SUMMARY BLADDER SCAN 196 ML AT THIS TIME, PT DENIES FEELING NEED TO VOID PT STATES HE IS BELCHING AND PASSING FLATUS. PER IMPLEMENTATION MANAGER ODOROUS BELCHING SMELLED LIKE STOOL, PT STATES BELCHING IS LESSOUS THIS AFTERNOON COMPARED TO THIS MORNING. PT DENIES NAUSE, ABD NON TENDER TO PALPATION AND PER PT ABD IS ONLY MILDLY DISTENDED PT TAKING ICE CHIPS ONLY
[2020-10-22 04:16] LABS: BASOPHILS ABSOLUTE AUTO 0.04 K/mm3 (0.00-0.23); BASOPHILS PERCENT AUTO 0 % (0-2); Hematocrit 23.7 % (37.0-53.0); Hemoglobin 7.7 g/dL (13.5-17.5); LYMPHOCYTES ABSOLUTE AUTO 0.77 K/mm3 (0.84-5.20); LYMPHOCYTES PERCENT AUTO 8 % (21-46); MONOCYTES ABSOLUTE AUTO 1.26 K/mm3 (0.16-1.47); MONOCYTES PERCENT AUTO 13 % (4-13); Mean Corpuscular HGB 31.2 pg (26.0-34.0); Mean Corpuscular HGB Conc 32.5 g/dL (31.5-36.5); Mean Corpuscular Volume 96 fL (80-100); Mean Platelet Volume 8.3 fL (9.1-12.4); NRBC ABSOLUTE 0.03 K/mm3 (0.00-0.02); NRBC Auto 0.3 /100 WBC (0.0-0.2); Platelet Count 295 K/mm3 (150-400); RDW Coefficient Variation 14.1 % (11.7-14.2); RDW Standard Deviation 49.1 fL (35.1-46.3); Red Blood Cell Count 2.47 M/mm3 (4.30-5.90); White Blood Cell Count 10.05 K/mm3 (4.00-11.30)
[2020-10-22 04:18] LABS: EOSINOPHILS ABSOLUTE AUTO 0.15 K/mm3 (0.00-0.68); EOSINOPHILS PERCENT AUTO 2 % (0-6); IMMATURE GRAN ABSOLUTE AUTO 0.49 K/mm3 (0.00-0.10); IMMATURE GRAN PERCENT AUTO 5 % (0-1); NEUTROPHILS ABSOLUTE AUTO 7.34 K/mm3 (1.96-9.15); NEUTROPHILS PERCENT AUTO 73 % (41-73)
[2020-10-22 04:38] LABS: Albumin, Blood 2.2 g/dL (3.4-5.0); Albumin/Globulin Ratio 0.8 (0.8-1.8); Bilirubin, Total 0.4 mg/dL (0.1-1.0); Bun/Creatinine Ratio 19.2 (12.0-20.0); Calcium, Blood 8.5 mg/dL (8.5-10.1); Creatinine, Blood 3.34 mg/dL (0.60-1.20); Globulin, Blood 2.8 g/dL (2.2-4.0)
[2020-10-22 04:50] LABS: BAND PERCENT MAN 5 % (0-8); BASOPHILS PERCENT MAN 0 % (0-2); EOSINOPHILS PERCENT MAN 0 % (0-6); LYMPHOCYTES PERCENT MAN 4 % (21-46); METAMYELOCYTE PERCENT MAN 4 % (0-0); MONOCYTES PERCENT MAN 5 % (4-13); NEUTROPHILS ABSOLUTE MAN 8.74 K/mm3 (1.96-9.15); SEG NEUTROPHILS PERCENT MAN 82 % (41-73); TOTAL CELLS COUNTED 100
--- NOTE | 2020-10-22 04:50 | NUR ---
SHIFT SUMMARY: PT S/P R ZACARIAS HIP WITH MEDIPORE DRESSING IN PLACE. PT REPOSITIONED Q2 FOR COMFORT- PT ABLE TO ASSIST WITH REPOSITIONING. PT NAUSEATED THIS MORNING. PT REQUIRING LINEN CHANGE D/T LARGE AMOUNT OF GREEN EMESIS. EMESIS HAD A FOUL, STRONG ODOR. MEDICATED WITH REGLAN AND ZOFRAN WITH LITTLE EFFECT. PT REPORTS FEELING A LITTLE BETTER AFTER VOMITING. ABD DISTENDED AND FIRM. SUCTION AT BEDSIDE FOR SECRETIONS. PT ENCOURAGED SEVERAL TIMES TO COUGH AND USE INCENTIVE SPIROMETER. LUNGS COARSE THIS MORNING. COUGH IS WET AND CONGESTED BUT UNPRODUCTIVE. BIOX IN PLACE- O2 STABLE ON RA. PT VOIDING IN URINAL.
--- NOTE | 2020-10-22 06:43 | NUR ---
SPOKE WITH HOSPITALIST REGARDING HR IN 140'S. NEW ORDER FOR 5MG IV LOPRESSOR.
--- NOTE | 2020-10-22 10:50 | NUR ---
PT HR CONTINUES TO SUSTAIN IN 130-140 RANGE, SINUS TACHYCARDIA PER TELE SENIOR QC TECHNICIAN. 5MG IV LOPRESSOR HAS NOW BEEN GIVEN TWICE SINCE SHIFT START. SPOKE WITH DR. MIRAMONTES CONCERNING THIS WHEN SHE MADE HER ROUNDS AT ABOUT 0850 AND AGAIN AT THIS TIME. PT DENIES CHEST PAIN. BP STABLE, WILL CTM AND AWAIT ORDERS
[2020-10-22 12:56] LABS: Magnesium, Blood 2.5 mg/dL (1.6-2.4); Phosphorus, Blood 4.2 mg/dL (2.5-4.9)
--- NOTE | 2020-10-22 15:43 | NUR ---
TRANSFER: AT 1420 PT'S HR CONTINUED TO BE IN THE 140'S PER LEAD DIE MOLDER. PT ASYMPTOMATIC, ALL OTHER VSS. DR. MIRAMONTES NOTIFIED. ORDER TO TRANSFER TO PCU AND START PREET CHAIREZ. REPORT GIVEN TO MODESTO SUPERVISING CHEF. PT TRANSFERED AT ABOUT 1510 VIA BED WITH MYSELF AND ONLINE COMMUNITY MANAGER MARIA.
--- NOTE | 2020-10-22 16:28 | NUR ---
SHIFT NOTE PT ARRIVED FROM SURGICAL FLOOR WITH HR THAT VARIES FROM 110s-140s. PT IS ALERT, ANSWERS QUESTIONS APPROPRIATELY. PT STS THAT HE IS UNABLE TO PERFORM ADLs, PT WAS NOT NOTED TO ATTEMPT TO PERFORM ADLs. CARDIZEM DRIP WAS STARTED AT 5ML/HR AND TITRATED TO 10 AT THE TIME OF THIS NOTE. PT WITH FIRM ABD, WITH HYPOACTIVE B/T. PT WITH FOUL SMELLING SPUTUM THAT IS GREEN AND THICK. PT WITH WET COARSE LS T/O.
--- NOTE | 2020-10-22 20:31 | NUR ---
stopping dilt gtt now - hr sustained nsr. will continue to monitor. vss.
[2020-10-23 03:24] LABS: Source, Urine Catheter
[2020-10-23 03:30] LABS: Bilirubin, Urine Neg (Neg); Blood, Urine 1+ (Neg); Glucose Qualitative, Urine 1+ (Neg); Ketones, Urine 1+ (Neg); Leukocyte Esterase, Urine Neg (Neg); Nitrite, Urine Neg (Neg); Protein, Urine 3+ (Neg); Urobilinogen, Urine NORM (Normal)
[2020-10-23 03:34] LABS: Appearance, Urine Clear (Clear); Color, Urine Yellow (P-Yellow)
[2020-10-23 03:36] LABS: Amorphous Mod (0-Heavy); Bacteria Mod /hpf; Red Blood Cells, Urine 0-2 /hpf (0-2); Squamous Epithelial Cells Few /hpf (Few); White Blood Cells, Urine 0-2 /hpf (0-5)
[2020-10-23 03:37] LABS: Hyaline Casts 0-2 /lpf (0-2)
[2020-10-23 04:24] LABS: BASOPHILS ABSOLUTE AUTO 0.08 K/mm3 (0.00-0.23); BASOPHILS PERCENT AUTO 1 % (0-2); Hematocrit 28.5 % (37.0-53.0); Hemoglobin 9.2 g/dL (13.5-17.5); LYMPHOCYTES PERCENT AUTO 5 % (21-46); MONOCYTES ABSOLUTE AUTO 1.56 K/mm3 (0.16-1.47); MONOCYTES PERCENT AUTO 11 % (4-13); Mean Corpuscular HGB 31.3 pg (26.0-34.0); Mean Corpuscular HGB Conc 32.3 g/dL (31.5-36.5); Mean Corpuscular Volume 97 fL (80-100); Mean Platelet Volume 8.6 fL (9.1-12.4); NRBC ABSOLUTE 0.04 K/mm3 (0.00-0.02); NRBC Auto 0.3 /100 WBC (0.0-0.2); Platelet Count 343 K/mm3 (150-400); RDW Coefficient Variation 14.5 % (11.7-14.2); RDW Standard Deviation 50.2 fL (35.1-46.3); Red Blood Cell Count 2.94 M/mm3 (4.30-5.90); White Blood Cell Count 14.76 K/mm3 (4.00-11.30)
[2020-10-23 04:31] LABS: EOSINOPHILS ABSOLUTE AUTO 0.18 K/mm3 (0.00-0.68); EOSINOPHILS PERCENT AUTO 1 % (0-6); IMMATURE GRAN ABSOLUTE AUTO 0.39 K/mm3 (0.00-0.10); IMMATURE GRAN PERCENT AUTO 3 % (0-1); NEUTROPHILS ABSOLUTE AUTO 11.75 K/mm3 (1.96-9.15); NEUTROPHILS PERCENT AUTO 80 % (41-73)
[2020-10-23 04:45] LABS: Bun/Creatinine Ratio 19.2 (12.0-20.0); Calcium, Blood 8.8 mg/dL (8.5-10.1); Creatinine, Blood 3.38 mg/dL (0.60-1.20); Potassium, Blood 3.8 mmol/L (3.5-5.5)
[2020-10-23 04:48] LABS: BAND PERCENT MAN 14 % (0-8); BASOPHILS PERCENT MAN 0 % (0-2); EOSINOPHILS ABSOLUTE MAN 0.14 K/mm3 (0.00-0.68); EOSINOPHILS PERCENT MAN 1 % (0-6); LYMPHOCYTES ABSOLUTE MAN 0.59 K/mm3 (0.84-5.20); LYMPHOCYTES PERCENT MAN 4 % (21-46); METAMYELOCYTE ABSOLUTE MAN 0.59 K/mm3 (0.00-0.00); METAMYELOCYTE PERCENT MAN 4 % (0-0); MONOCYTES ABSOLUTE MAN 0.59 K/mm3 (0.16-1.47); MONOCYTES PERCENT MAN 4 % (4-13); NEUTROPHILS ABSOLUTE MAN 12.84 K/mm3 (1.96-9.15); SEG NEUTROPHILS PERCENT MAN 73 % (41-73); TOTAL CELLS COUNTED 100
--- NOTE | 2020-10-23 05:12 | NUR ---
SHIFT SUMMARY PT RESTLESS THROUGHOUT NIGHT - REMAINS UNCOMFORTABLE. PT ALERT AND ORIENTED, ABLE TO MAKE NEEDS KNOWN, BUT HARD TO UNDERSTAND. PT LUNG SOUNDS ARE CRACKLY, AND PT IS VERY CONGESTED. ENCOURAGED FREQUENT COUGHING TO CLEAR THROAT, BUT PT DOESNT DO STRONG DEEP COUGHS. PT COUGHS UP BRIGHT GREEN SPUTUM/EMESIS. FREQUENT DEEP SUCTIONING WITH MINIMAL RELIEF. BELLY REMAINS VERY DISTENDED, AND PT OFTEN COMPLAINS OF NAUSEA - SEE EMAR. PT BECAME VERY ANXIOUS AND LUNG SOUNDS SOUNDED WORSE, PT WAS REQUIRING 3-5L OF O2 VIA NC, WHEN PREVIOUSLY ON ROOM AIR. NOTIFIED MD OF NEW CHANGES, ORDERED BUMEX X1, DC FLUIDS IN HOPES TO ALLEVIATE RESP STATUS. SINCE PT HAD BEEN ON FLUIDS, LUNG SOUNDED CONGESTED/WET, AND BUMEX GIVEN, PT ONLY VOIDED 75ML ABOUT AN HOUR AFTER RECEIVING THE ABOVE. RN TO BLADDER SCAN PT - BLADDER SCAN READS 438ML - MD NOTIFIED AND ORDERED TO PLACE BOOKER FOR ACCURATE I/O AND TO HELP WITH RETENTION ISSUES PT ADMITS TO HAVING. BOOKER - 300ML UOP, UA SENT TO LAB - SEE RESULTS. PT HR CONVERTED TO NSR AT SHIFT CHANGE, AND HAS REMAINED IN NSR/STACH. DILT GTT TURNED OFF AT 1999. HR REMAINS BELOW 110'S. PT SAT UP ON EDGE OF BED TO HELP WITH BREATHING AND PRODUCTIVE COUGHING - SEEMED TO HELP SOME, PT NOW SELF SUCTIONING NEEDED. Q2 TURNING/REPOSITIONING. NO C/O PAIN. VITALS STABLE. CALL LIGHT WITHIN REACH, BED IN LOWEST POSITION, WILL CONTINUE TO MONITOR.
--- NOTE | 2020-10-23 11:51 | NUR ---
Call to Dr. Bashir regarding primary RN's two unsuccessful attempts to plce NGT; pt is having bleeding from his nares at this time. ORder for lidocaine to help with insertion as Dr. Bashir states that it is neccessary for the pt to have the NGT placed.
--- NOTE | 2020-10-23 12:33 | NUR ---
NG TUBE PLACED TO LEFT NARES PER VERBAL ORDER FROM DR. LUGO. CONFIRMATION WITH 2600 OUT OF GREEN GASTRIC CONTENTS AND XRAY.
--- NOTE | 2020-10-23 17:26 | NUR ---
TELEPHONE CALL TO DR. MIRAMONTES; HR 140 IN AFIB. TELEPHONE ORDER TO RESTART CARDIZEM. CARDIZEM DRIP STARTED AT 10ML/HR.
--- NOTE | 2020-10-23 17:39 | NUR ---
SHIFT SUMMARY; A/A/OX4 THROUGHOUT SHIFT TODAY. UP TO CHAIR AT BEDSIDE WITH PT. ABDOMEN DISTENDED AND FIRM AT BEGINNING OF SHIFT. NG TUBE PLACED PER ORDER FROM DR. LUGO. 3000ML GREEN LIQUID OUT. ABD ROUND SOFT AND NON TENDER AT THIS TIME. CARDIZEM DRIP RESTARTED AT 10ML/HR FOR GOING INTO AFIB WITH HR IN 140'S PER DR. MIRAMONTES. BLOOD PRESSURE STABLE. BOOKER CATH DRAINING CLEAR DARK YELLOW URINE. DRESSING TO RIGHT HIP SURGICAL SITE C/D/I. ASSISTED WITH REPOSITIONING THROUGHOUT DAY. 02 DC'D WITH SATS STAYING GREATER THAT 95% ON RA POST NG PLACEMENT. WILL CONTINUE TO MONITOR AND TREAT UNTIL CHANGE OF SHIFT.
[2020-10-24 04:33] LABS: Hematocrit 25.2 % (37.0-53.0); Hemoglobin 8.1 g/dL (13.5-17.5); Mean Corpuscular HGB 31.3 pg (26.0-34.0); Mean Corpuscular HGB Conc 32.1 g/dL (31.5-36.5); Mean Corpuscular Volume 97 fL (80-100); Mean Platelet Volume 8.7 fL (9.1-12.4); NRBC ABSOLUTE 0.03 K/mm3 (0.00-0.02); NRBC Auto 0.3 /100 WBC (0.0-0.2); Platelet Count 300 K/mm3 (150-400); RDW Coefficient Variation 14.7 % (11.7-14.2); RDW Standard Deviation 51.4 fL (35.1-46.3); Red Blood Cell Count 2.59 M/mm3 (4.30-5.90); White Blood Cell Count 11.33 K/mm3 (4.00-11.30)
[2020-10-24 04:48] LABS: Bun/Creatinine Ratio 18.8 (12.0-20.0); Calcium, Blood 8.6 mg/dL (8.5-10.1); Creatinine, Blood 3.99 mg/dL (0.60-1.20); Potassium, Blood 3.6 mmol/L (3.5-5.5)
[2020-10-24 05:40] LABS: BAND PERCENT MAN 11 % (0-8); BASOPHILS PERCENT MAN 0 % (0-2); EOSINOPHILS ABSOLUTE MAN 0.11 K/mm3 (0.00-0.68); EOSINOPHILS PERCENT MAN 1 % (0-6); LYMPHOCYTES ABSOLUTE MAN 1.13 K/mm3 (0.84-5.20); LYMPHOCYTES PERCENT MAN 10 % (21-46); MONOCYTES ABSOLUTE MAN 0.79 K/mm3 (0.16-1.47); MONOCYTES PERCENT MAN 7 % (4-13); NEUTROPHILS ABSOLUTE MAN 9.29 K/mm3 (1.96-9.15); SEG NEUTROPHILS PERCENT MAN 71 % (41-73); TOTAL CELLS COUNTED 100
--- NOTE | 2020-10-24 06:17 | NUR ---
SHIFT SUMMARY PT A&O x3 THROUGH SHIFT. VERY MILD CONFUSION WHEN FIRST WAKES UP. NG INTACT TO INTERMITTANT SUCTION, PATENT WITH DARK GREEN FLUID. APPROX 500 OUTPUT FOR SHIFT. NO RESP DISTRESS OBSERVED, O2 @ 2LPM VIA NC. HEART RHYTHM ATRIAL FLUTTER. RATE 140'S AT START OF SHIFT, NOW DOWN TO 101. CARDIZEM GTT REMAINS AT 15MG/HR. PT DENIED ANY CHEST PAIN. DRESSING TO RIGHT HIP CHANGED, MILD AMOUNT OF OLD DRAINAGE NOTED. SURGICAL INCISION HEALING NICELY, NO OPENINGS SEEN. URINARY CATH PATENT WITH YELLOW URINE.
--- NOTE | 2020-10-24 07:51 | NUR ---
PERMISSION TO GIVE CARE PT GAVE THIS STUDENT RN PERMISSION TO PROVIDE CARE 10/24
--- NOTE | 2020-10-24 08:27 | NUR ---
CARDIZEM TITRATED DOWN TO 10ML/HR PER DR. MIRAMONTES.
--- NOTE | 2020-10-24 13:00 | NUR ---
CONVERTED TO SINUS AT 1115. REMAINS ON IV CARDIZEM AT 5ML/HR PER DR. MIRAMONTES UNTIL PO MEDS CAN BE STARTED.
--- NOTE | 2020-10-24 17:47 | NUR ---
SHIFT SUMMARY; A/A/OX4 THROUGHOUT SHIFT. NGT TO LEFT NARE REMAINS IN PLACE. 400ML GREEN/BLACK OUTPUT. ABD ROUND AND SOFT. NO NAUSEA OR VOMITING DURING SHIFT. PT STATES HAS PASSED GAS A COUPLE TIMES DURING SHIFT. BT HYPOACTIVE X4 QUADS. HR CONVERTED TO SINUS AT APPROX 1115. CARIDZEM DRIP REMAINS AT 5ML/HR PER DR. MIRAMONTES UNTIL PO MEDS CAN BE STARTED. VSS, CLINIMEX STARTED TODAY AT 100ML/HR. UP TO CHAIR WITH ASSISTANCE X2 TODAY AND WORKED WITH PHYSICAL THERAPY. DRESSING TO RIGHT HIP SITE C/D/I CHANGED LAST NIGHT. JD HOSES BILATERALLY REMAIN IN PLACE. WILL CONTINUE TREAT AND MONITOR UNTIL CHANGE OF SHIFT.
[2020-10-25 04:21] LABS: BASOPHILS ABSOLUTE AUTO 0.03 K/mm3 (0.00-0.23); BASOPHILS PERCENT AUTO 0 % (0-2); EOSINOPHILS ABSOLUTE AUTO 0.44 K/mm3 (0.00-0.68); EOSINOPHILS PERCENT AUTO 4 % (0-6); Hematocrit 23.1 % (37.0-53.0); Hemoglobin 7.2 g/dL (13.5-17.5); IMMATURE GRAN ABSOLUTE AUTO 0.45 K/mm3 (0.00-0.10); IMMATURE GRAN PERCENT AUTO 4 % (0-1); LYMPHOCYTES ABSOLUTE AUTO 0.77 K/mm3 (0.84-5.20); LYMPHOCYTES PERCENT AUTO 7 % (21-46); MONOCYTES ABSOLUTE AUTO 0.89 K/mm3 (0.16-1.47); MONOCYTES PERCENT AUTO 8 % (4-13); Mean Corpuscular HGB 31.2 pg (26.0-34.0); Mean Corpuscular HGB Conc 31.2 g/dL (31.5-36.5); Mean Corpuscular Volume 100 fL (80-100); Mean Platelet Volume 8.9 fL (9.1-12.4); NEUTROPHILS ABSOLUTE AUTO 8.18 K/mm3 (1.96-9.15); NEUTROPHILS PERCENT AUTO 76 % (41-73); Platelet Count 290 K/mm3 (150-400); RDW Coefficient Variation 15.1 % (11.7-14.2); RDW Standard Deviation 54.4 fL (35.1-46.3); Red Blood Cell Count 2.31 M/mm3 (4.30-5.90); White Blood Cell Count 10.76 K/mm3 (4.00-11.30)
[2020-10-25 04:42] LABS: Albumin, Blood 2.1 g/dL (3.4-5.0); Albumin/Globulin Ratio 0.8 (0.8-1.8); Bilirubin, Total 0.4 mg/dL (0.1-1.0); Calcium, Blood 8.7 mg/dL (8.5-10.1); Creatinine, Blood 4.26 mg/dL (0.60-1.20); Globulin, Blood 2.6 g/dL (2.2-4.0); Magnesium, Blood 2.8 mg/dL (1.6-2.4); Phosphorus, Blood 4.3 mg/dL (2.5-4.9); Potassium, Blood 3.5 mmol/L (3.5-5.5); Total Protein, Blood 4.7 g/dL (6.4-8.2)
--- NOTE | 2020-10-25 05:06 | NUR ---
SHIFT SUMMARY A&Ox4 THOUGHOUT SHIFT. NG PATENT TO INTERMITTENT SUCTION, DARK GREEN DRAINAGE, APPROX 1000ML IN 12HR SHIFT. BOWEL SOUNDS HYPOACTIVE. NO RESP DISTRESS, O2@1LPM VIA N/C. TELEMETRY SINUS RHYTHM 60s, CARDIZEM GTT @5MG/HR IV. URINARY CATH TO GRAVITY DRAINAGE, DARK YELLOW URINE. DRESSING TO RIGHT HIP SURGICAL WOUND INTACT, NO DRAINAGE ON DRESSING. ASSISTED PT UP TO CHAIR @ 5AM, PT STEADY ON FEET.
[2020-10-25 13:22] LABS: Hematocrit 23.2 % (37.0-53.0); Hemoglobin 7.4 g/dL (13.5-17.5)
--- NOTE | 2020-10-25 17:33 | NUR ---
PT SUMMARY: PT REMAINS NPO, NGT REMAINS IN PLACE VIA INTERMITTENT SUCTION HAD 700MLS OUTPUT FOR THE SHIFT BLACK GREEN IN COLOR. VITALS REMAINED STABLE. DENIES ANY PAIN TODAY RIGHT HIP PAIN TOLERABLE WITH THERAPY TODAY, DENIES CHEST PAIN/SOB/SOB. NO NASUEA/EMESIS, PT REPORTED PASSING FLATUS WAS GIVEN BISACODYL SUPPOSITORY WITH NO RESULT YET PT REPORTED JUST FEELING THE URGE TO DEFECATE. PT REMAINS ON IV ABO. SUCTION AT BEDSIDE PRN, PT USES INDEPENDENTLY. NO OTHER ISSUES ENCOUNTERED FOR THE SHIFT. ABLE TO MAKE NEEDS KNOWN, CALLS APPROPRIATELY. WILL REPORT TO ONCOMING SHIFT.
[2020-10-26 04:18] LABS: BASOPHILS ABSOLUTE AUTO 0.05 K/mm3 (0.00-0.23); BASOPHILS PERCENT AUTO 0 % (0-2); EOSINOPHILS ABSOLUTE AUTO 0.32 K/mm3 (0.00-0.68); EOSINOPHILS PERCENT AUTO 3 % (0-6); Hemoglobin 7.6 g/dL (13.5-17.5); IMMATURE GRAN ABSOLUTE AUTO 0.47 K/mm3 (0.00-0.10); IMMATURE GRAN PERCENT AUTO 4 % (0-1); LYMPHOCYTES ABSOLUTE AUTO 0.81 K/mm3 (0.84-5.20); LYMPHOCYTES PERCENT AUTO 6 % (21-46); MONOCYTES ABSOLUTE AUTO 0.94 K/mm3 (0.16-1.47); MONOCYTES PERCENT AUTO 7 % (4-13); Mean Corpuscular HGB 30.9 pg (26.0-34.0); Mean Corpuscular HGB Conc 30.4 g/dL (31.5-36.5); Mean Corpuscular Volume 102 fL (80-100); Mean Platelet Volume 8.8 fL (9.1-12.4); NEUTROPHILS ABSOLUTE AUTO 10.11 K/mm3 (1.96-9.15); NEUTROPHILS PERCENT AUTO 80 % (41-73); NRBC ABSOLUTE 0.03 K/mm3 (0.00-0.02); NRBC Auto 0.2 /100 WBC (0.0-0.2); Platelet Count 285 K/mm3 (150-400); RDW Coefficient Variation 14.8 % (11.7-14.2); RDW Standard Deviation 55.2 fL (35.1-46.3); Red Blood Cell Count 2.46 M/mm3 (4.30-5.90)
[2020-10-26 04:44] LABS: Alanine Aminotransfer (ALT/SGP 9 U/L (12-78); Albumin, Blood 2.1 g/dL (3.4-5.0); Albumin/Globulin Ratio 0.8 (0.8-1.8); Alk Phos 63 U/L (50-136); Anion Gap 5 mmol/L (6-16); Aspartate Aminotrans (AST/SGOT 12 U/L (12-37); Bilirubin, Total 0.3 mg/dL (0.1-1.0); Blood Urea Nitrogen 89 mg/dL (8-24); Bun/Creatinine Ratio 23.5 (12.0-20.0); CO2, Blood 21 mmol/L (21-32); Calcium, Blood 8.8 mg/dL (8.5-10.1); Chloride, Blood 128 mmol/L (98-108); Creatinine, Blood 3.78 mg/dL (0.60-1.20); Globulin, Blood 2.7 g/dL (2.2-4.0); Glomerular Filtration Rate 16 (60-); Glucose, Blood 153 mg/dL (70-99); Magnesium, Blood 2.9 mg/dL (1.6-2.4); Potassium, Blood 3.8 mmol/L (3.5-5.5); Sodium, Blood 154 mmol/L (136-145); Total Protein, Blood 4.8 g/dL (6.4-8.2); Triglycerides 130 mg/dL (30-160)
--- NOTE | 2020-10-26 05:18 | NUR ---
CLAMPED NGT AT 0515. NGT OUTPUT HAS BEEN SLOWED DOWN, PT HAVING MULTIPLE BM'S/FLATUS. WILL CONTINUE TO MONITOR.
--- NOTE | 2020-10-26 06:08 | NUR ---
SHIFT SUMMARY PT SOMEWHAT RESTLESS THROUGH NIGHT. ALERT AND ORIENTED - ABLE TO MAKE NEEDS KNOWN. SATS GREAT ON RA, BUT CHOOSES TO WEAR 1LNC FOR COMFORT. TELE NSR -60'S. CARD GTT STLL RUNNING AT 5MG/HR. VSS. BOOKER DRAINING ADEQUATE UOP, 2 BM'S. CLAMPED NGT AT 0515 - WILL MONITOR FOR NAUSEA/VOMITING. NO C/O PAIN. WILL CONTINUE TO MONITOR. CALL LIGHT WITHIN REACH, BED IN LOWEST POSITION.
--- NOTE | 2020-10-26 17:49 | NUR ---
PT SUMMARY: NO ACUTE CHANGE FOR THE SHIFT. VITALS REMAINED STABLE. CARDIZEM GTT TURNED OFF HR REMAINED SR 60-70'S, PT STARTED ON ORAL CARDIZEM OKAY TO GIVE MEDS WITH SIPS OF WATER PER DR LUGO, PT TOLERATED WELL FOR THE SHFIT, NO COUGHING ISSUES. NGT REMAINED IN PLACE AND CLAMPED, TO STAY CLAMPED FOR [address] LUGO, PT DENIES ANY NAUSEA/FEELING SICK. OFFERED SUPPOSITORY TODAY AND WAS REFUSE PT STATED HE DOESN'T FEEL LIKE HE NEEDS IT AT THIS TIME. BOWEL TONES HYPOACTIVE. DENIES ANY PAIN. WAS ABLE TO TRANSFER TO CHAIR SAFELY VIA 2PA ASSISTS GAIT BELT AND WALKER IN USE. PT NOW RESTING IN BED, CALL LIGHTS IN REACH, WILL REPORT TO ONCOMING SHIFT.
[2020-10-27 05:20] LABS: BASOPHILS ABSOLUTE AUTO 0.06 K/mm3 (0.00-0.23); BASOPHILS PERCENT AUTO 1 % (0-2); EOSINOPHILS ABSOLUTE AUTO 0.24 K/mm3 (0.00-0.68); EOSINOPHILS PERCENT AUTO 2 % (0-6); Hematocrit 25.4 % (37.0-53.0); Hemoglobin 7.8 g/dL (13.5-17.5); IMMATURE GRAN ABSOLUTE AUTO 0.45 K/mm3 (0.00-0.10); IMMATURE GRAN PERCENT AUTO 4 % (0-1); LYMPHOCYTES ABSOLUTE AUTO 0.93 K/mm3 (0.84-5.20); LYMPHOCYTES PERCENT AUTO 8 % (21-46); MONOCYTES PERCENT AUTO 8 % (4-13); Mean Corpuscular HGB 31.1 pg (26.0-34.0); Mean Corpuscular HGB Conc 30.7 g/dL (31.5-36.5); Mean Corpuscular Volume 101 fL (80-100); NEUTROPHILS ABSOLUTE AUTO 9.21 K/mm3 (1.96-9.15); NEUTROPHILS PERCENT AUTO 78 % (41-73); Platelet Count 258 K/mm3 (150-400); RDW Coefficient Variation 14.6 % (11.7-14.2); RDW Standard Deviation 53.8 fL (35.1-46.3); Red Blood Cell Count 2.51 M/mm3 (4.30-5.90); White Blood Cell Count 11.79 K/mm3 (4.00-11.30)
--- NOTE | 2020-10-27 05:20 | NUR ---
SHIFT REPORT NO ACUTE CHANGES THIS SHIFT. PT A&OX4. SP02>92% ON RA. PT HAS OCCASIONAL COUGH, SELF SUCTIONS. NOT ENOUGH SPUTUM TO SPIT/COLLECT FOR SAMPLE. TELEMETRY READS SR, HR 60'S-70'S. PT REQUESTED DUCOLAX SUPPOSITORY TO ASSIST WITH BM. UP TO BSC 3 TIMES THIS SHIFT WITH 2 PERSON ASSIST. PT HAD ONE SUCCESSFUL, SMALL FORMED BM. PT ABD MODERATELY DISTENDED, SOFT NON TENDER. PT STATES HE FEELS LIKE "ITS FULL OF AIR" BUT CANNOT PASS THE GAS ACCORDING TO PT. BOOKER CATHETER DRAINING TO GRAVITY, 500 MLS THIS SHIFT. CLINIMIX INFUSING PER EMAR. PT C/O OF DRY MOUTH/THROAT T/O THE NIGHT. GAVE MULTIPLE PACKS OF LEMON SWABS TO HELP COMFORT. CALL LIGHT IN REACH. WILL CONTINUE TO MONITOR.
[2020-10-27 06:07] LABS: Albumin, Blood 2.3 g/dL (3.4-5.0); Albumin/Globulin Ratio 0.9 (0.8-1.8); Bilirubin, Total 0.3 mg/dL (0.1-1.0); Bun/Creatinine Ratio 23.9 (12.0-20.0); Calcium, Blood 8.7 mg/dL (8.5-10.1); Creatinine, Blood 3.76 mg/dL (0.60-1.20); Globulin, Blood 2.7 g/dL (2.2-4.0); Phosphorus, Blood 4.6 mg/dL (2.5-4.9); Potassium, Blood 3.9 mmol/L (3.5-5.5)
--- NOTE | 2020-10-27 18:13 | NUR ---
SHIFT NOTE PT REMAINS WITH NG CLAMPED AT THIS TIME. PT DID RECIEVE HIS PO CARDIZEM VIA TUBE TODAY HE WAS NOT ABLE TO SWALLOW HE ASPIRATED ON SPOONFUL OF WATER. PT IS ALERT ANSWERING QUESTIONS WELL. VSS. NO ACUTE CHANGES ON THIS SHIFT
[2020-10-28 04:31] LABS: BASOPHILS ABSOLUTE AUTO 0.02 K/mm3 (0.00-0.23); BASOPHILS PERCENT AUTO 0 % (0-2); EOSINOPHILS ABSOLUTE AUTO 0.21 K/mm3 (0.00-0.68); EOSINOPHILS PERCENT AUTO 2 % (0-6); Hematocrit 22.5 % (37.0-53.0); Hemoglobin 6.9 g/dL (13.5-17.5); IMMATURE GRAN ABSOLUTE AUTO 0.24 K/mm3 (0.00-0.10); IMMATURE GRAN PERCENT AUTO 3 % (0-1); LYMPHOCYTES ABSOLUTE AUTO 0.85 K/mm3 (0.84-5.20); LYMPHOCYTES PERCENT AUTO 9 % (21-46); MONOCYTES ABSOLUTE AUTO 0.97 K/mm3 (0.16-1.47); MONOCYTES PERCENT AUTO 10 % (4-13); Mean Corpuscular HGB 31.1 pg (26.0-34.0); Mean Corpuscular HGB Conc 30.7 g/dL (31.5-36.5); Mean Corpuscular Volume 101 fL (80-100); Mean Platelet Volume 9.1 fL (9.1-12.4); NEUTROPHILS ABSOLUTE AUTO 7.35 K/mm3 (1.96-9.15); NEUTROPHILS PERCENT AUTO 76 % (41-73); Platelet Count 205 K/mm3 (150-400); RDW Coefficient Variation 14.3 % (11.7-14.2); Red Blood Cell Count 2.22 M/mm3 (4.30-5.90); White Blood Cell Count 9.64 K/mm3 (4.00-11.30)
[2020-10-28 04:56] LABS: Anion Gap 6 mmol/L (6-16); Blood Urea Nitrogen 90 mg/dL (8-24); Bun/Creatinine Ratio 26.4 (12.0-20.0); CO2, Blood 19 mmol/L (21-32); Calcium, Blood 8.2 mg/dL (8.5-10.1); Chloride, Blood 128 mmol/L (98-108); Creatinine, Blood 3.41 mg/dL (0.60-1.20); Glomerular Filtration Rate 18 (60-); Glucose, Blood 151 mg/dL (70-99); Phosphorus, Blood 4.8 mg/dL (2.5-4.9); Potassium, Blood 4.2 mmol/L (3.5-5.5); Sodium, Blood 153 mmol/L (136-145)
--- NOTE | 2020-10-28 06:30 | NUR ---
DISCHARGE SUMMARY. ASSUMED CARE AT 1900. UP IN CHAIR A FEW HOURS. I.S. GOOD EFFORT AND ENC. 1200 ML ENC COUGH AND DEEP BREATHE ALL THRU NOC. SR ALL NOC . DENIES PAIN ACTIVE BS. UP TO COMMODE AT ABOUT MID NOC TO HAVE LARGE, DK BROWN BM FORMED . MOUTH SWABS ALL NOC. DOZING ON AND OFF ALL NOC TURNED THRU NOC. NO SKIN BREAKDOWN. NG CLAMPED AND NO MEDS OR FLUIDS INSTILLED TONIGHT. USED WALKER FOR BEDSIDE TRANSFER AND FAIRLY STEADY GAIT. PLACED CALL TO DR LUGO AND 1 UNIT PRBC ORDERED TO BE GIVEN. STATED HE WILL SEE PT THIS AM.VERY WEAK AND DRY MOUTH / STILL GOOD EFFORT W/ I.S.NO SIGN OF ANY ACTIVE BLEEDING
--- NOTE | 2020-10-28 09:03 | NUR ---
UPDATE: Pt resting in bed. Given verbal education regarding blood transfusions and possible reactions. Verbalized understanding and denies questions. Unit of PRBC started. VSS, LS clear. Pt denies SOB or chest pain. Call light in reach. Will monitor for Pt needs and S/S of blood reaction.
--- NOTE | 2020-10-28 09:15 | NUR ---
REMOVED NG TUBE PER V.O. DR. LUGO. PT TOLERATED WELL.
[2020-10-28 14:33] LABS: Hematocrit 28.5 % (37.0-53.0); Hemoglobin 8.8 g/dL (13.5-17.5)
--- NOTE | 2020-10-28 16:25 | NUR ---
PT ARRIVED TO ROOM 231 FROM PCU PT IN BED REQ SOME JUICE TO DRINK STATED THAT SOME PAIN WITH SWALLOWING BUT IT IS BETTER NO STRAW
--- NOTE | 2020-10-28 17:12 | NUR ---
MEDS GIVEN SCHED
--- NOTE | 2020-10-28 17:59 | NUR ---
pt eating dinner cl diet lab at bedside for h/h
[2020-10-28 18:14] LABS: Hematocrit 28.8 % (37.0-53.0); Hemoglobin 9.1 g/dL (13.5-17.5)
[2020-10-29 04:57] LABS: BASOPHILS ABSOLUTE AUTO 0.03 K/mm3 (0.00-0.23); BASOPHILS PERCENT AUTO 0 % (0-2); EOSINOPHILS ABSOLUTE AUTO 0.19 K/mm3 (0.00-0.68); EOSINOPHILS PERCENT AUTO 2 % (0-6); Hematocrit 26.5 % (37.0-53.0); Hemoglobin 8.1 g/dL (13.5-17.5); IMMATURE GRAN ABSOLUTE AUTO 0.29 K/mm3 (0.00-0.10); IMMATURE GRAN PERCENT AUTO 3 % (0-1); LYMPHOCYTES ABSOLUTE AUTO 0.93 K/mm3 (0.84-5.20); LYMPHOCYTES PERCENT AUTO 9 % (21-46); MONOCYTES ABSOLUTE AUTO 1.12 K/mm3 (0.16-1.47); MONOCYTES PERCENT AUTO 11 % (4-13); Mean Corpuscular HGB 30.6 pg (26.0-34.0); Mean Corpuscular HGB Conc 30.6 g/dL (31.5-36.5); Mean Corpuscular Volume 100 fL (80-100); Mean Platelet Volume 9.3 fL (9.1-12.4); NEUTROPHILS ABSOLUTE AUTO 7.89 K/mm3 (1.96-9.15); NEUTROPHILS PERCENT AUTO 76 % (41-73); Platelet Count 173 K/mm3 (150-400); RDW Coefficient Variation 14.6 % (11.7-14.2); RDW Standard Deviation 53.3 fL (35.1-46.3); Red Blood Cell Count 2.65 M/mm3 (4.30-5.90); White Blood Cell Count 10.45 K/mm3 (4.00-11.30)
--- NOTE | 2020-10-29 05:08 | NUR ---
SHIFT SUMMARY POST OP RIGHT ZACARIAS HIP. AAOX4. PT REPORTING DISCOMFORT AT TOLERABLE LEVEL T/O SHIFT, MILD NAUSEA CONTROLLED WITH PHENERGAN + PROTONIX, NO EMESIS. IVF PER ORDERS. X3 LARGE SOFT BMs THIS SHIFT. PT MOVES SELF WELL IN BED, CONTINUE TO ENCOURAGE. COCCYX MATTEO, BARRIER CREAM APPLIED. HEELS FLOATED ON PILLOWS. GENERALIZED EDEMA NOTED T/O, NO CHANGE THIS SHIFT. SIPS CLEARS. TELEMETRY NSR 70s T/O NIGHT. PT CURRENTLY RESTING IN BED WITH CALL LIGHT IN REACH.
[2020-10-29 05:15] LABS: Albumin, Blood 1.9 g/dL (3.4-5.0); Anion Gap 6 mmol/L (6-16); Blood Urea Nitrogen 77 mg/dL (8-24); Bun/Creatinine Ratio 23.9 (12.0-20.0); CO2, Blood 19 mmol/L (21-32); Calcium, Blood 8.1 mg/dL (8.5-10.1); Chloride, Blood 123 mmol/L (98-108); Creatinine, Blood 3.22 mg/dL (0.60-1.20); Glomerular Filtration Rate 20 (60-); Glucose, Blood 151 mg/dL (70-99); Phosphorus, Blood 5.1 mg/dL (2.5-4.9); Potassium, Blood 4.5 mmol/L (3.5-5.5); Sodium, Blood 148 mmol/L (136-145)
--- NOTE | 2020-10-29 15:20 | NUR ---
Shift summary Patient's abdomen is distended and firm. Tympanic bowel tones x4. Clinic infusing at 100cc/hr with piggyback lipids daily. Patient is taking sips of clear liquids. Patient has denied nausea today. Patient stated he feels more SOB of breath today. Patient was able to get up into the recliner chair with a 2 person moderate assist. Call light within patient reach.
--- NOTE | 2020-10-29 22:11 | NUR ---
CONTACTED ON-CALL PHYSICIAN D/T CRACKLES AUSCULTATED IN BILATERAL BASES AND EDEMA THROUGHOUT. THE CLINIMIX WAS INFUSING AT 100 ML/HR AND THE D5N1/4NS @ 30 ML/HR. ORDER OBTAINED TO REDUCE THE CLINIMIX TO 50 ML/HR. PT IS TAKING SMALL AMOUNTS OF CLEAR LIQUIDS AND REPORTS HAVING A SIGNIFICANT AMOUNT OF PO INTAKE YESTERDAY. HE DENIES NAUSEA/VOMITING.
[2020-10-30 04:52] LABS: Hematocrit 24.6 % (37.0-53.0); Hemoglobin 7.7 g/dL (13.5-17.5)
[2020-10-30 05:15] LABS: Anion Gap 7 mmol/L (6-16); Blood Urea Nitrogen 80 mg/dL (8-24); Bun/Creatinine Ratio 25.6 (12.0-20.0); CO2, Blood 18 mmol/L (21-32); Calcium, Blood 8.3 mg/dL (8.5-10.1); Chloride, Blood 119 mmol/L (98-108); Creatinine, Blood 3.12 mg/dL (0.60-1.20); Glomerular Filtration Rate 20 (60-); Glucose, Blood 115 mg/dL (70-99); Phosphorus, Blood 5.6 mg/dL (2.5-4.9); Potassium, Blood 4.5 mmol/L (3.5-5.5); Sodium, Blood 144 mmol/L (136-145)
--- NOTE | 2020-10-30 06:31 | NUR ---
SHIFT SUMMARY: EROS HAS REQUIRED FREQUENT TURNING AND REPOSITIONING DURING THE NIGHT. HE HAS DENIED THE NEED FOR ANY PAIN MEDICATION. HE DENIES NAUSEA OR VOMITING. HE REPORTS PASSING GAS AND DID HAVE A SMALL SMEAR BOWEL MOVEMENT THIS AM. HE IS A TWO PERSON ASSIST WITH THE GAIT BELT AND FWW. HE IS TOLERATING SIPS/CHIPS. DRESSING TO R HIP C/D&I. HE USES HIS CALL LIGHT APPROPRIATELY. HE IS LYING IN BED WITH HIS CALL LIGHT AND TRAY TABLE IN REACH. IV TO LEFT WRIST AND LINE TO LEFT UPPER ARM INTACT. HE IS LYING IN BED WITH HIS CALL LIGHT IN REACH. WILL REPORT TO TRINO SHIFT RN.
--- NOTE | 2020-10-30 15:54 | NUR ---
Shift summary Patient had one large brown unformed BM today. Patient is a 2 person assist to stand at the side of the bed. Patient has been AOx4 today. Clinimix infusing with lipids daily. Patient takes pills whole with water. Patient has denied nausea today. Bowel tones active x4. Call light within patient reach.
--- NOTE | 2020-10-30 21:57 | NUR ---
PT REPORTS INCREASING SOB. PT REPOSITIONED WITH MINIMAL IMPROVEMENT. MAINTAINING O2 SATS ORA. ON-CALL PHYSICIAN CONTACTED AND ORDERS FOR CHEST X-RAY, EKG AND H&H OBTAINED.
--- NOTE | 2020-10-30 22:32 | NUR ---
ON-CALL PHYSICIAN NOTIFIED OF EKG FINDING OF "SUSPECT UNSPECIFIED PACEMAKER FAILURE" AND SINUS RHYTHM WITH PREMATURE ATRIAL COMPLEXES. PHYSICIAN PLACING ORDER FOR PACEMAKER INTERROGATION. AWAITING RESULTS OF H&H.
[2020-10-30 23:07] LABS: Hematocrit 23.7 % (37.0-53.0); Hemoglobin 7.4 g/dL (13.5-17.5)
--- NOTE | 2020-10-30 23:50 | NUR ---
PACEMAKER INTERROGATION COMPLETED BY NINA CM. PT REPORTS SOB IMPROVED. HE IS CURRENTLY RESTING COMFORTABLY IN BED WITH HIS EYES CLOSED. CALL LIGHT IN REACH.
--- NOTE | 2020-10-31 00:03 | NUR ---
RECEIVED PHONE CALL FROM ELISABETH WITH [facility]. HE STATES THAT THE PACEMAKER IS FUNCTIONING NORMALLY AND THAT THE BATTERY IS IN GOOD OPERATING CONDITION. HE STATES THAT HE IS FAXING A REPORT FOR EROS'S CHART.
[2020-10-31 04:00] LABS: BASOPHILS ABSOLUTE AUTO 0.01 K/mm3 (0.00-0.23); BASOPHILS PERCENT AUTO 0 % (0-2); EOSINOPHILS ABSOLUTE AUTO 0.19 K/mm3 (0.00-0.68); EOSINOPHILS PERCENT AUTO 3 % (0-6); Hematocrit 23.4 % (37.0-53.0); Hemoglobin 7.5 g/dL (13.5-17.5); IMMATURE GRAN PERCENT AUTO 1 % (0-1); LYMPHOCYTES ABSOLUTE AUTO 0.84 K/mm3 (0.84-5.20); LYMPHOCYTES PERCENT AUTO 12 % (21-46); MONOCYTES ABSOLUTE AUTO 0.94 K/mm3 (0.16-1.47); MONOCYTES PERCENT AUTO 13 % (4-13); Mean Corpuscular HGB 31.4 pg (26.0-34.0); Mean Corpuscular HGB Conc 32.1 g/dL (31.5-36.5); Mean Corpuscular Volume 98 fL (80-100); Mean Platelet Volume 9.3 fL (9.1-12.4); NEUTROPHILS ABSOLUTE AUTO 5.09 K/mm3 (1.96-9.15); NEUTROPHILS PERCENT AUTO 71 % (41-73); Platelet Count 144 K/mm3 (150-400); RDW Coefficient Variation 13.8 % (11.7-14.2); RDW Standard Deviation 49.3 fL (35.1-46.3); Red Blood Cell Count 2.39 M/mm3 (4.30-5.90); White Blood Cell Count 7.17 K/mm3 (4.00-11.30)
--- NOTE | 2020-10-31 04:16 | NUR ---
SHIFT SUMMARY: EROS AROUSES EASILY AND RESPONDS APPROPRIATELY. VSS. HE REPORTS THAT THE SOB IS SIGNIFICANTLY IMPROVED. HE HAS A NEW POWERGLIDE TO HIS MOLLY, CLINIMIX INFUSING. HE IS TOLERATING SIPS OF CLEARS. BOOKER PATENT. HE DENIES CHEST PAIN OR NAUSEA. HE HAS BEEN TURNED AND REPOSITIONED FREQUENTLY THROUGHOUT THE NIGHT. HE IS LYING IN BED WITH HIS CALL LIGHT IN REACH. WILL REPORT TO DAY SHIFT RN.
[2020-10-31 04:17] LABS: Albumin, Blood 1.9 g/dL (3.4-5.0); Anion Gap 5 mmol/L (6-16); Blood Urea Nitrogen 76 mg/dL (8-24); Bun/Creatinine Ratio 23.2 (12.0-20.0); CO2, Blood 19 mmol/L (21-32); Calcium, Blood 7.9 mg/dL (8.5-10.1); Chloride, Blood 120 mmol/L (98-108); Creatinine, Blood 3.28 mg/dL (0.60-1.20); Glomerular Filtration Rate 19 (60-); Glucose, Blood 129 mg/dL (70-99); Magnesium, Blood 2.2 mg/dL (1.6-2.4); Phosphorus, Blood 5.2 mg/dL (2.5-4.9); Potassium, Blood 4.4 mmol/L (3.5-5.5); Sodium, Blood 144 mmol/L (136-145)
--- NOTE | 2020-10-31 18:27 | NUR ---
SUMMARY: NO ACUTE CHANGE TODAY, PT A/O, VSS. PT ABLE TO TAKE IN SMALL AMT LIQ, BUT REPORTS "FEELING FULL" WHEN DOING SO, SO DOESN'T TAKE MUCH. REPORTS PASSING GAS AND HAD 2 SMALL BM'S TODAY. ABD IS SOFT, MODERATLY DISTENDED. PT DENIES NAUSEA. ABLE TO WORK WITH PT/OT AND UP TO THE CHAIR X3. PT HAD MORE ENERGY IN THE MORNING, BUT BY MID DAY WAS VERY TIRED. PT CONTINUES TO C/O SOB WHEN LYING FLAT, GIVEN LASIX TODAY. TELE STABLE, PER CEMENT FITTINGS MAKER. WILL CTM AND REPORT TO NOC RN.
--- NOTE | 2020-11-01 05:34 | NUR ---
SHIFT SUMMARY PT A/O WITH VSS. WEAKNESS WITH STAND/PIVOT USING FWW/GB. UP TO CHAIR AND BSC. COMMUNICATES NEEDS. CLINIMIX AND ABX INFUSING PER ORDERS. DENIES PAIN. REPOSITIONED FREQUENTLY T/O SHIFT W/BLE ELEVATED. JHONY PATENT. DENIES N/V. AWAITING MORNING LABS. PT CURRENTLY RESTING IN BED WITH EYES CLOSED AND CALL LIGHT IN REACH. WILL CONT TO MONITOR AND GIVE REPORT TO ONCOMING RN.
[2020-11-01 07:13] LABS: BASOPHILS ABSOLUTE AUTO 0.01 K/mm3 (0.00-0.23); BASOPHILS PERCENT AUTO 0 % (0-2); EOSINOPHILS ABSOLUTE AUTO 0.09 K/mm3 (0.00-0.68); EOSINOPHILS PERCENT AUTO 1 % (0-6); Hematocrit 22.1 % (37.0-53.0); Hemoglobin 7.5 g/dL (13.5-17.5); IMMATURE GRAN ABSOLUTE AUTO 0.05 K/mm3 (0.00-0.10); IMMATURE GRAN PERCENT AUTO 1 % (0-1); LYMPHOCYTES ABSOLUTE AUTO 0.71 K/mm3 (0.84-5.20); LYMPHOCYTES PERCENT AUTO 11 % (21-46); MONOCYTES ABSOLUTE AUTO 0.62 K/mm3 (0.16-1.47); MONOCYTES PERCENT AUTO 9 % (4-13); Mean Corpuscular HGB 34.2 pg (26.0-34.0); Mean Corpuscular HGB Conc 33.9 g/dL (31.5-36.5); Mean Corpuscular Volume 101 fL (80-100); Mean Platelet Volume 12.5 fL (9.1-12.4); NEUTROPHILS ABSOLUTE AUTO 5.17 K/mm3 (1.96-9.15); NEUTROPHILS PERCENT AUTO 78 % (41-73); Platelet Count 121 K/mm3 (150-400); RDW Coefficient Variation 14.3 % (11.7-14.2); RDW Standard Deviation 50.6 fL (35.1-46.3); Red Blood Cell Count 2.19 M/mm3 (4.30-5.90); White Blood Cell Count 6.65 K/mm3 (4.00-11.30)
[2020-11-01 07:24] LABS: Albumin, Blood 1.9 g/dL (3.4-5.0); Anion Gap 6 mmol/L (6-16); Blood Urea Nitrogen 75 mg/dL (8-24); Bun/Creatinine Ratio 22.9 (12.0-20.0); CO2, Blood 15 mmol/L (21-32); Calcium, Blood 7.8 mg/dL (8.5-10.1); Chloride, Blood 121 mmol/L (98-108); Creatinine, Blood 3.28 mg/dL (0.60-1.20); Glomerular Filtration Rate 19 (60-); Glucose, Blood 111 mg/dL (70-99); Phosphorus, Blood 5.6 mg/dL (2.5-4.9); Potassium, Blood 4.8 mmol/L (3.5-5.5); Sodium, Blood 142 mmol/L (136-145)
--- NOTE | 2020-11-01 16:08 | NUR ---
SPOKE WITH DR. MUNIZ AT ABOUT 1530, SEE NEW ORDER FOR BLADDER TRAINING. PER DR. MUNIZ'S REQUEST ALSO SPOKE WITH ORACIO, DIETITION CONCERNING ADDED BI-CARB TO IV NUTRITION. ORACIO DOES NOT RECOMMEND THIS IN CLINAMIX DUE TO THE LARGE VOLUME IN BAG GEING ADMINISTERED SLOWLY AT 50ML/HR.
--- NOTE | 2020-11-01 17:36 | NUR ---
PT IS POD14 FOR R ZACARIAS HIP. A/O, OFTEN SLOW TO RESPOND. VSS, TELE WNL TODAY. SURGICAL DRESSING AT R HIP CHANGED TODAY, SITE IS CDI. PT ABLE TO TRANSFER TO AND FROM RECLINER SEVERAL TIMES TODAY, IS VERY WEAK STILL AND SOB ON EXERTION . DR. MUNIZ IS CONSULTED AND SEEING PT. PT IS TOLERATING CLEAR LIQ DIET, DOES HAVE ASPIRATION PRECAUTIONS. ABD IS SOFT, NON TENDER. PT REPORTS PASSING GAS, NO BM TODAY, DENIES NAUSEA. MAY BE ABLE TO ADVANCE DIET. EDEMA PRESENT TO BILAT ARMS AND MD GORDY AWARE, CLINIMIX CURRENTLY INFUSING THROUGH POWERGLIDE LINE. NO ACUTE SAFETY CONCERNS. PT'S SISTER GIVEN AN UPDATE ON THE PHONE.WILL CTM AND REPORT TO KOREY WOOD.
--- NOTE | 2020-11-02 05:09 | NUR ---
SHIFT SUMMARY: PT A&O X4. VS WNL THROUGHOUT SHIFT. ABLE TO COMMUNICATE NEEDS WELL. SLOW TO RESPOND. REPOSITIONED Q2. BUE'S ELEVATED ON PILLOWS D/T SWELLING AND REDNESS. SWELLING TO BUE AND BLE APPEARS TO BE INCREASING. NEW POWERGLIDE PLACED TO RUE WITH CLINIMIX INFUSING PER ORDERS. DR ALMAGUER IN ROOM TO ASSESS PATIENT IN BEGINNING OF SHIFT. DR. LUGO AWARE OF PT ASPIRATING AFTER DRINKING A SMALL AMOUNT OF WATER. NEW ORDER FOR SPEECH THERAPY TODAY AND FOR PATIENT TO REMAIN NPO EXCEPT FOR MEDS WITH GELATINE. ABD DISTENDED AND SOFT. HYPERACTIVE BT THROUGHOUT. DENIES FLATUS. LUNGS DIMINISHED THROUGHOUT. DYSPNEA NOTED WITH EXERTION. 2 MAX ASSIST TO CHAIR W/FWW+GB.
[2020-11-02 05:18] LABS: BASOPHILS ABSOLUTE AUTO 0.03 K/mm3 (0.00-0.23); BASOPHILS PERCENT AUTO 0 % (0-2); EOSINOPHILS ABSOLUTE AUTO 0.13 K/mm3 (0.00-0.68); EOSINOPHILS PERCENT AUTO 2 % (0-6); Hematocrit 22.8 % (37.0-53.0); Hemoglobin 7.2 g/dL (13.5-17.5); IMMATURE GRAN ABSOLUTE AUTO 0.08 K/mm3 (0.00-0.10); IMMATURE GRAN PERCENT AUTO 1 % (0-1); LYMPHOCYTES ABSOLUTE AUTO 0.86 K/mm3 (0.84-5.20); LYMPHOCYTES PERCENT AUTO 11 % (21-46); MONOCYTES ABSOLUTE AUTO 0.96 K/mm3 (0.16-1.47); MONOCYTES PERCENT AUTO 12 % (4-13); Mean Corpuscular HGB 31.2 pg (26.0-34.0); Mean Corpuscular HGB Conc 31.6 g/dL (31.5-36.5); Mean Corpuscular Volume 99 fL (80-100); Mean Platelet Volume 10.3 fL (9.1-12.4); NEUTROPHILS ABSOLUTE AUTO 6.05 K/mm3 (1.96-9.15); NEUTROPHILS PERCENT AUTO 75 % (41-73); Platelet Count 176 K/mm3 (150-400); RDW Coefficient Variation 13.8 % (11.7-14.2); RDW Standard Deviation 48.7 fL (35.1-46.3); Red Blood Cell Count 2.31 M/mm3 (4.30-5.90); White Blood Cell Count 8.11 K/mm3 (4.00-11.30)
[2020-11-02 05:39] LABS: Bun/Creatinine Ratio 21.8 (12.0-20.0); Calcium, Blood 8.3 mg/dL (8.5-10.1); Creatinine, Blood 3.44 mg/dL (0.60-1.20); Potassium, Blood 4.2 mmol/L (3.5-5.5)
--- NOTE | 2020-11-02 07:50 | NUR ---
pt oob in recliner chair asking to eat pt is npo at this time st consult placed for swallow eval for asp
--- NOTE | 2020-11-02 08:44 | NUR ---
pt working with speech therapy ok to have nectar thick liquids no straw and to be up 90 degrees meds given with lemon thick gelatin no difficulties noted
--- NOTE | 2020-11-02 10:05 | NUR ---
pt had med sized mucus like bm dk brown in color after working with physical therapy assisted back into bed pt wanting to have a nap
--- NOTE | 2020-11-02 13:14 | NUR ---
DR CORDOVA BY TO SEE PT
--- NOTE | 2020-11-02 18:04 | NUR ---
assisted pt to lay on his left side to rest earlier he had a visitor and had a oj and aj and a gelatin
--- NOTE | 2020-11-02 18:28 | NUR ---
iv infiltrated dr zambrano by to see pt plan for dietary to see pt in am and dobhoff to be placed
--- NOTE | 2020-11-03 04:14 | NUR ---
SHIFT SUMMARY PT RESTED INFREQUENTLY T/O NIGHT. AAOX4. DISCOMFORT CONTROLLED WITH PO HYDROCODONE. NO NAUSEA/EMESIS. TOLERATING SMALL AMOUNTS OF THICKENED CLEARS THIS SHIFT, NEEDS ASSISTANCE FEEDING. LEFT HIP WITH DRESSING C/D/I. PPP, DENIES N/T + MOVES TOES WELL BLE. RUE WITH INCREASED EDEMA POST IV INFILTRATED ON PREVIOUS SHIFT, ELEVATED ON PILLOWS + HOT BLANKET APPLIED. PT TURNED FREQUENTLY T/O NIGHT FOR COMFORT + UP TO CHAIR FOR 1 HR THIS SHIFT. NO IV ACCESS AT THIS TIME, AWAITING PICC LINE CERTIFIED RN TO BE AVAILABLE. PT CURRENTLY RESTING IN BED WITH CALL LIGHT IN REACH.
[2020-11-03 06:45] LABS: BASOPHILS ABSOLUTE AUTO 0.02 K/mm3 (0.00-0.23); BASOPHILS PERCENT AUTO 0 % (0-2); EOSINOPHILS ABSOLUTE AUTO 0.08 K/mm3 (0.00-0.68); EOSINOPHILS PERCENT AUTO 1 % (0-6); Hematocrit 23.2 % (37.0-53.0); Hemoglobin 7.4 g/dL (13.5-17.5); IMMATURE GRAN ABSOLUTE AUTO 0.06 K/mm3 (0.00-0.10); IMMATURE GRAN PERCENT AUTO 1 % (0-1); LYMPHOCYTES PERCENT AUTO 10 % (21-46); MONOCYTES PERCENT AUTO 11 % (4-13); Mean Corpuscular HGB 31.1 pg (26.0-34.0); Mean Corpuscular HGB Conc 31.9 g/dL (31.5-36.5); Mean Corpuscular Volume 98 fL (80-100); Mean Platelet Volume 10.2 fL (9.1-12.4); NEUTROPHILS ABSOLUTE AUTO 6.06 K/mm3 (1.96-9.15); NEUTROPHILS PERCENT AUTO 76 % (41-73); Platelet Count 181 K/mm3 (150-400); RDW Coefficient Variation 13.9 % (11.7-14.2); RDW Standard Deviation 49.3 fL (35.1-46.3); Red Blood Cell Count 2.38 M/mm3 (4.30-5.90); White Blood Cell Count 7.92 K/mm3 (4.00-11.30)
[2020-11-03 07:10] LABS: Anion Gap 6 mmol/L (6-16); Blood Urea Nitrogen 74 mg/dL (8-24); Bun/Creatinine Ratio 19.1 (12.0-20.0); CO2, Blood 17 mmol/L (21-32); Calcium, Blood 8.4 mg/dL (8.5-10.1); Chloride, Blood 121 mmol/L (98-108); Creatinine, Blood 3.88 mg/dL (0.60-1.20); Glomerular Filtration Rate 16 (60-); Glucose, Blood 117 mg/dL (70-99); Phosphorus, Blood 6.5 mg/dL (2.5-4.9); Potassium, Blood 4.2 mmol/L (3.5-5.5); Sodium, Blood 144 mmol/L (136-145)
--- NOTE | 2020-11-03 13:26 | NUR ---
DR. CORDOVA VERBALIZED HE WOULD CALL DR. LUGO TO DISCUSS TREATMENT PLAN R/T TO DIET/NUTRITION.
--- NOTE | 2020-11-03 16:05 | NUR ---
SHIFT SUMMARY PT ADVANCED TO FULL LIQ DIET PER DR. CORDOVA AND SPEECH THERAPY. NO SIGNS OF ASPIRATION WITH PO INTAKE THIS SHIFT. DR. CORDOVA VERBALIZED HE WOULD CALL DR. LUGO AND DISCUSS NUTRITION PLANS. PT HAS DENIED NEED FOR PAIN MEDICATIONS TODAY. WORKED WITH THERAPY AND WAS UP IN THE CHAIR THIS AFTERNOON. 1 SBA USING FWW. JHONY VELEZ'Ulisses TODAY PER DR. WALKER--MONITORING FOR URINARY OUTPUT/RETENTION. PLAN IS FOR PT TO GO TO SNF AT DISCHARGE.
--- NOTE | 2020-11-03 16:44 | NUR ---
Spiritual care inital note: Mr. Miguel is soft-spoken, mild-mannered, and appears quite frail. He seems to have a strong ralen and tells me that he is well loved by family/friends. He admits he is tired of being in the hospital. He denied pain and concerns. I provided companionship, encouragement, and prayer to good effect. I will remain available.
--- NOTE | 2020-11-03 16:55 | NUR ---
TELE BOX RETURNED TO EMPLOYEE DEVELOPMENT MANAGER.
--- NOTE | 2020-11-04 07:38 | NUR ---
SHIFT SUMMARY PT RESTED WELL THIS SHIFT. AAOX4. DISCOMFORT TO HIT INCREASED WITH MOVEMENT, DENIED PAIN MEDICATION POST MOVEMENT. PAIN TO BUE DECREASED WITH ELEVATED OF EXTREMITIES. NO NAUSEA/EMESIS. DRESSING TO RIGHT HIP C/D/I. PPP, DENIES CHANGE IN SENSATION BLE + MOVES TOES WELL. PT UP TO CHAIR THIS AM. X2 LARGE LOOST STOOLS THIS SHIFT. PT WITH IMPROVED APPETITE THIS SHIFT OVER PREVIOUS, EATING X1 APPLE SAUCE + SIPS OF JUICE. PT CURRENTLY SITTING UP IN CHAIR WATCHING TV WITH CALL LIGHT IN REACH. REPORT TO DAY SHIFT RN.
--- NOTE | 2020-11-04 17:03 | NUR ---
SHIFT SUMMARY PT A&OX4, VSS, RA AT THIS TIME. POD16 DRESSING CDI. AMBULATES W/FWW/GB & MIN/MOD ASSIST TO CHAIR/BSC. VOIDING WELL ON BSC; BMS TODAY. AMMON FULL LIQUID DIET; INTAKE IS INCREASED. OOB IN CHAIR FOR MEALS PLUS, WITH NAP BREAKS. WILL REPORT TO ONCOMING NOC RN.
[2020-11-05 00:48] LABS: Source, Urine Catheter
[2020-11-05 01:02] LABS: Bilirubin, Urine Neg (Neg); Blood, Urine 3+ (Neg); Glucose Qualitative, Urine 2+ (Neg); Ketones, Urine Neg (Neg); Leukocyte Esterase, Urine 1+ (Neg); Nitrite, Urine Neg (Neg); Protein, Urine 2+ (Neg); Specific Gravity, Urine 1.015 (1.003-1.022); Urobilinogen, Urine NORM (Normal)
[2020-11-05 01:03] LABS: Appearance, Urine Clear (Clear); Color, Urine Yellow (P-Yellow)
[2020-11-05 01:04] LABS: Amorphous Light (0-Heavy); Bacteria Few /hpf; Red Blood Cells, Urine 0-2 /hpf (0-2); Squamous Epithelial Cells Few /hpf (Few); White Blood Cells, Urine 0-2 /hpf (0-5)
[2020-11-05 05:14] LABS: BASOPHILS ABSOLUTE AUTO 0.02 K/mm3 (0.00-0.23); BASOPHILS PERCENT AUTO 0 % (0-2); EOSINOPHILS ABSOLUTE AUTO 0.12 K/mm3 (0.00-0.68); EOSINOPHILS PERCENT AUTO 2 % (0-6); Hematocrit 21.5 % (37.0-53.0); Hemoglobin 6.7 g/dL (13.5-17.5); IMMATURE GRAN ABSOLUTE AUTO 0.05 K/mm3 (0.00-0.10); IMMATURE GRAN PERCENT AUTO 1 % (0-1); LYMPHOCYTES ABSOLUTE AUTO 0.98 K/mm3 (0.84-5.20); LYMPHOCYTES PERCENT AUTO 13 % (21-46); MONOCYTES ABSOLUTE AUTO 1.04 K/mm3 (0.16-1.47); MONOCYTES PERCENT AUTO 14 % (4-13); Mean Corpuscular HGB 31.2 pg (26.0-34.0); Mean Corpuscular HGB Conc 31.2 g/dL (31.5-36.5); Mean Corpuscular Volume 100 fL (80-100); Mean Platelet Volume 10.2 fL (9.1-12.4); NEUTROPHILS ABSOLUTE AUTO 5.12 K/mm3 (1.96-9.15); NEUTROPHILS PERCENT AUTO 70 % (41-73); Platelet Count 180 K/mm3 (150-400); RDW Coefficient Variation 14.1 % (11.7-14.2); RDW Standard Deviation 51.3 fL (35.1-46.3); Red Blood Cell Count 2.15 M/mm3 (4.30-5.90); White Blood Cell Count 7.33 K/mm3 (4.00-11.30)
[2020-11-05 05:45] LABS: Albumin, Blood 1.9 g/dL (3.4-5.0); Anion Gap 6 mmol/L (6-16); Blood Urea Nitrogen 68 mg/dL (8-24); Bun/Creatinine Ratio 18.9 (12.0-20.0); CO2, Blood 19 mmol/L (21-32); Calcium, Blood 8.4 mg/dL (8.5-10.1); Chloride, Blood 124 mmol/L (98-108); Glomerular Filtration Rate 17 (60-); Glucose, Blood 114 mg/dL (70-99); Phosphorus, Blood 5.3 mg/dL (2.5-4.9); Sodium, Blood 149 mmol/L (136-145)
--- NOTE | 2020-11-05 08:10 | NUR ---
SUMMARY PT OOB WITH JIG HAND FOR BRP @2127, BUT WAS SO WEAK THAT IT REQUIRED A MANN LIFT AND 3 STAFF MAX ASSIST TO RETURN PT SAFELY TO BED.DAY RN REPORTED PT REQUIRED OOB TO BSC FOR EACH VOID TO ASSIST IN ADEQUATE VOIDING PATTERN., PT LETHARGIC. WHEN BACK TOBED. IN MY JUDGEMENT NOT SAFE VOIDING PER BSC EACH VOID. PT UNMEASURED VOID IN TOILET NOTED.I BLADDER SCANNED FOR RESULT OF 450. I CALLED DR WALKER PER HER ORDERS AND ADVISED OF ABOVEW ASSESSMENT AND BLADDER SCAN RESULTS. BOOKER WAS ORDERED AND PLACED WITH YELLOW RETURN.U/A SENT. PT SLEPT THIS SHIFT. H/H DROPPED THIS AM.TRANSFUSION ORDERED. I HELD PROTONIX PO DUE TO LETHARGY AND PREVENTION OF POSSIBLE ASPIRATION BUT DID NOT CLEAR IT FROM EMAR HOPING WILL WAKE ENOUGH FOR DAY RN TO GIVE AND REQUESTED DAY RN TO FOLLOW UP AND ATTEMPT TO GET ORDER FOR PO OR IV ROUJTE FOR FUTURE DOSING. JAZ WOOD AGREES TO FOLLOW UP.
--- NOTE | 2020-11-05 12:55 | NUR ---
AWAITING DR. CORDOVA TO ROUND ON PT. HE HAS BEEN NOTIFIED OF REDNESS/SWELLING TO JENNIFER AND GENERALIZED EDEMA. DR. CORDOVA WAS ALSO REQUESTED TO REVIEW CODE STATUS WITH PT HE IS CURRENTLY A FULL CODE. WILL CONTINUE TO MONITOR.
--- NOTE | 2020-11-05 19:34 | NUR ---
SHIFT SUMMARY PT HAD 1 UNIT OF PRBC TODAY AND APPEARED TO TOLERATE WELL. PT HAS GENERALIZED EDEMA, DR. CORDOVA AWARE. PT HAS REDNESS AND SWELLING TO BUE. PT IS A 1-2 PERSON ASSIST FOR REPOSITIONING, HE DECLINES REPOSITIONING ONTO HIS RIGHT SIDE. HE WILL ONLY ALLOW STAFF TO REPOSITION HIM ONTO HIS LEFT SIDE OR PLACE PILLOWS UNDER BILATERAL HIPS TO RELIEVE PRESSURE ON COCCYX. PT HAS BEEN WEAK AND SOMNOLENT T/O THE DAY, PLAN FOR OOB AND THERAPY TOMORROW SINCE PT HAD PRBC TODAY. PT DENIES NEED FOR PAIN MEDICATION INCLUDING TYLENOL. PT HAS HAD GOOD INTAKE TODAY AND EATS MOST OF HIS MEALS. VSS. REPORT GIVEN TO KOREY WOOD.
[2020-11-06 04:54] LABS: BASOPHILS ABSOLUTE AUTO 0.02 K/mm3 (0.00-0.23); BASOPHILS PERCENT AUTO 0 % (0-2); EOSINOPHILS ABSOLUTE AUTO 0.12 K/mm3 (0.00-0.68); EOSINOPHILS PERCENT AUTO 2 % (0-6); Hematocrit 24.4 % (37.0-53.0); Hemoglobin 7.6 g/dL (13.5-17.5); IMMATURE GRAN ABSOLUTE AUTO 0.05 K/mm3 (0.00-0.10); IMMATURE GRAN PERCENT AUTO 1 % (0-1); LYMPHOCYTES ABSOLUTE AUTO 0.82 K/mm3 (0.84-5.20); LYMPHOCYTES PERCENT AUTO 14 % (21-46); MONOCYTES ABSOLUTE AUTO 0.86 K/mm3 (0.16-1.47); MONOCYTES PERCENT AUTO 15 % (4-13); Mean Corpuscular HGB 30.9 pg (26.0-34.0); Mean Corpuscular HGB Conc 31.1 g/dL (31.5-36.5); Mean Corpuscular Volume 99 fL (80-100); Mean Platelet Volume 10.1 fL (9.1-12.4); NEUTROPHILS ABSOLUTE AUTO 3.91 K/mm3 (1.96-9.15); NEUTROPHILS PERCENT AUTO 68 % (41-73); Platelet Count 188 K/mm3 (150-400); RDW Coefficient Variation 14.6 % (11.7-14.2); RDW Standard Deviation 53.3 fL (35.1-46.3); Red Blood Cell Count 2.46 M/mm3 (4.30-5.90); White Blood Cell Count 5.78 K/mm3 (4.00-11.30)
[2020-11-06 05:18] LABS: Albumin, Blood 1.9 g/dL (3.4-5.0); Anion Gap 5 mmol/L (6-16); Blood Urea Nitrogen 65 mg/dL (8-24); Bun/Creatinine Ratio 18.5 (12.0-20.0); CO2, Blood 21 mmol/L (21-32); Calcium, Blood 8.5 mg/dL (8.5-10.1); Chloride, Blood 123 mmol/L (98-108); Creatinine, Blood 3.51 mg/dL (0.60-1.20); Glomerular Filtration Rate 18 (60-); Glucose, Blood 144 mg/dL (70-99); Phosphorus, Blood 4.7 mg/dL (2.5-4.9); Potassium, Blood 4.7 mmol/L (3.5-5.5); Sodium, Blood 149 mmol/L (136-145)
--- NOTE | 2020-11-06 06:36 | NUR ---
PT T-MAX 100.4, TYLENOL GIVEN W/NOTED EFFECT. OTHER VSS T/O NIGHT. LUNGS DIM, SATS >90% ON 1L O2NC. NO SIG CHANGES TO EDEMA, ALL EXT ELEVATED IN BED. PT HAS WEAK NON PROD COUGH, ASSISTED W/I/S USE. PT AMMON NECTAR THICK LIQ, ASSISTED W/FULL LIQ PO. BOOKER PATANT. PT MED FOR PAIN X1 W/REP RELIEF. RIGHT HIP DRESSING CDI. PT WEAK, REPOSITIONED FREQ T/O NIGHT. PT USING CALL LIGHT FOR ASSISTANCE.
--- NOTE | 2020-11-06 16:33 | NUR ---
Chart reviewed. Sent a records request to the [facility] medical records department to see if Donald has an AD or POLST on file at the [facility]. Attempted to visit with him this afternoon. His room is dark and he is sleeping soundly at the time I attempted to visit. Spoke with nursing who reports he is doing better today than he was yesterday. It is likely that he will be discharging to rehab soon. Nursing states it's fine to let him sleep for now. Will attempt a visit tomorrow to discuss goals/code status.
--- NOTE | 2020-11-06 21:00 | NUR ---
POWERGLIDE: LUE ABOVE AND AROUND POWERGLIDE SITE APPEARS FIRM/SWOLLEN. PT REP TENDERNESS W/PALP. SITE REVIEWED W/DAY RN DURING REPORT, NO CHANGES NOTED. PER DAY RN, SITE ASSESSED TODAY BY RN WHO PLACED PWOERGLIDE AND REPORTED SITE WNL W/NO CHANGES. SITE ASSESSED W/CLINICAL COORDINATOR. PT REFUSING NEW IV TO BE PLACED AT THIS TIME. IVF STOPPED AT THIS TIME. ARM ELEVATED, PT DECLINING COMPRESS. WILL MONITOR FOR CHANGES IN SWELLING.
--- NOTE | 2020-11-07 06:19 | NUR ---
PT VSS, BP NOTED ELEVATED THIS AM, PT DENIED CP/PRESSURE. SATS >90% ON RA FOR MOST OF NIGHT, 1LO2 PLACED WHILE SLEEPING AFTER PAIN MEDS GIVEN. LUNGS DIM, PT HAS OCC WEAK COUGH. PAIN MGD W/REPOSITIONING AND PER EMAR. PT AMMON NECTAR THICK LIQ AND FL PO WELL. PO FLUIDS ENC. ABD SOFT, BT ACTIVE. BOOKER PATANT DRNG YELLOW URINE. R HIP DRESSING CDI. PT REPOSITIONED FREQ T/O NIGHT, EXT ELEVATED IN BED. NO SIG CHANGES IN EDEMA. PT DOES CALL OFTEN FOR REPOSITIONING AND ASSISTANCE, APPEARED TO SLEEP WELL TONIGHT. POWERGLIDE SITE LESS SWOLLEN THIS AM AFTER IVF STOPPED AND ARM ELEVATED. PLAN TO D/C THIS AM.
--- NOTE | 2020-11-07 10:26 | NUR ---
Spoke with Bedside NINA Morales prior to Pt visit and discussed case. Pt resting in bed upon arrival. Pt A&OX3. When asked regarding place, Pt names May[facility] Blake. Re-orientated to place. Pt denies pain and anxiety at this time. Pt appears lethargic and struggles with remaining awake. Will attempt to visit with Pt when more appropriate to have conversation. Received Pt's advaned directive via fax from [place]. Delivered copy to medical records. Will attempt to visit with Pt at a later time to discuss code status and consideration of completing POLST.
--- NOTE | 2020-11-07 16:09 | NUR ---
SHIFT SUMMARY NO ACUTE CHANGES TODAY. PT DENIES PAIN. DRESSING TO HIP REMAINS CDI. PT UP TO CHAIR THIS AFTERNOON WITH 1 MODERATE SBA USING FWW + GB. AMMON FULL LIQ DIET. JHONY PATENT. PT POSSIBLY DISCHARGING TO [facility] TOMORROW DEPENDING ON MORNING LABS. CALL LIGHT WITHIN REACH.
[2020-11-08 05:33] LABS: BASOPHILS ABSOLUTE AUTO 0.02 K/mm3 (0.00-0.23); BASOPHILS PERCENT AUTO 0 % (0-2); EOSINOPHILS ABSOLUTE AUTO 0.19 K/mm3 (0.00-0.68); EOSINOPHILS PERCENT AUTO 3 % (0-6); Hematocrit 27.2 % (37.0-53.0); Hemoglobin 8.3 g/dL (13.5-17.5); IMMATURE GRAN ABSOLUTE AUTO 0.06 K/mm3 (0.00-0.10); IMMATURE GRAN PERCENT AUTO 1 % (0-1); LYMPHOCYTES ABSOLUTE AUTO 0.87 K/mm3 (0.84-5.20); LYMPHOCYTES PERCENT AUTO 16 % (21-46); MONOCYTES ABSOLUTE AUTO 0.67 K/mm3 (0.16-1.47); MONOCYTES PERCENT AUTO 12 % (4-13); Mean Corpuscular HGB Conc 30.5 g/dL (31.5-36.5); Mean Corpuscular Volume 98 fL (80-100); Mean Platelet Volume 9.9 fL (9.1-12.4); NEUTROPHILS ABSOLUTE AUTO 3.76 K/mm3 (1.96-9.15); NEUTROPHILS PERCENT AUTO 68 % (41-73); Platelet Count 205 K/mm3 (150-400); RDW Coefficient Variation 14.1 % (11.7-14.2); RDW Standard Deviation 50.4 fL (35.1-46.3); Red Blood Cell Count 2.77 M/mm3 (4.30-5.90); White Blood Cell Count 5.57 K/mm3 (4.00-11.30)
[2020-11-08 05:52] LABS: Anion Gap 5 mmol/L (6-16); Blood Urea Nitrogen 59 mg/dL (8-24); Bun/Creatinine Ratio 21.1 (12.0-20.0); CO2, Blood 22 mmol/L (21-32); Calcium, Blood 8.9 mg/dL (8.5-10.1); Chloride, Blood 119 mmol/L (98-108); Creatinine, Blood 2.79 mg/dL (0.60-1.20); Glomerular Filtration Rate 23 (60-); Glucose, Blood 172 mg/dL (70-99); Phosphorus, Blood 3.1 mg/dL (2.5-4.9); Potassium, Blood 4.9 mmol/L (3.5-5.5); Sodium, Blood 146 mmol/L (136-145)
--- NOTE | 2020-11-08 07:35 | NUR ---
SHIFT SUMMARY CLOSED R HIP FX REPAIR POD20, A/O X4, VSS, SLOW TO RESPOND BUT COMMUNICATES WELL, TOLERATING FULL LIQUID DIET, NECTAR THICK AT PATIENT'S REQUEST. TRANSFERS WELL W/ 1 PERSON MODERATE SBA, [facility], DENIES PAIN T/O SHIFT. CALL LIGHT IN REACH, REPORT GIVEN TO DAY RN.
--- NOTE | 2020-11-08 10:28 | NUR ---
Visited with Donald this morning. He is awake and alert, but fatigued today. He is agreeable to review his AD and discuss code status. AD rec'd from the [place] that designates his friend Char Rizzo [phone] or [phone] as his health care textile machinery sales representative and his sister, Denise Parker, as his alternate health care textile machinery sales representative. These designations are still his wishes. Reviewed his AD and his wishes for no continuous churn buttermaker support listed on the AD still match his current wishes. Discussed code status. He would like to be a Full Code with full treatments at this time with short term intubation being ok. He was very clear, as is his AD, that he would not want senior care support. He is unsure if he would want dialysis at this time. He verbally confirms the full code, full treatments with no senior care support but did not feel up to signing the POLST this morning. He states he is feeling better and he possibly may be able to be discharged to rehab soon. He voices no requests at this time. Will allow him to rest. Nursing reports his heart rate has been elevated this morning and and EKG was done. PC to follow up as needed. Spoke with Dr. Contreras and requested that she sign his POLST form. She is aware that he remains a full code at this time. Will process POLST form once it is signed by the MD.
[2020-11-08 13:09] LABS: A/G RATIO 1.1 (0.7-1.7); ALBUMIN 2.4 g/dL (2.9-4.4); ALPHA-1-GLOBULIN 0.4 g/dL (0.0-0.4); ALPHA-2-GLOBULIN 0.7 g/dL (0.4-1.0); BETA GLOBULIN 0.5 g/dL (0.7-1.3); GAMMA GLOBULIN 0.8 g/dL (0.4-1.8); GLOBULIN, TOTAL 2.3 g/dL (2.2-3.9); IMMUNOGLOBULIN A, QN, SERUM 123 mg/dL (61-437); IMMUNOGLOBULIN G, QN, SERUM 727 mg/dL (603-1613); IMMUNOGLOBULIN M, QN, SERUM 29 mg/dL (15-143); M-SPIKE Not Observed g/dL (Not Observed); PROTEIN, TOTAL, SERUM 4.7 g/dL (6.0-8.5)
--- NOTE | 2020-11-08 16:21 | NUR ---
SHIFT SUMMARY: POD 20 RIGHT HIP REPAIR NO ACUTE CHANGES. PATIENT IS ALERT ADN ORIENTED X4 BUT HAS BEEN SLEEPING MAJORITY OF THE SHIFT. HOWEVER, HE IS AROUSABLE WHEN SLEEPING. HE HAS BEEN DENYING PAIN THROUGHOUT SHIFT. DRESSING ON HIP IS C/D/I. PT HAS BEEN UP IN THE CHAIR FOR BREAKFAST AND LUNCH. HE NEEDS 1 PERSON MODERATE ASSIST WITH FWW AND GAIT BELT. TOLERATING FULL LIQUID DIET. BOOKER IS PATENT AND HAVING YELLOW URINE OUTPUT. CALLS APPROPRIATELY. CALL LIGHT IS WITHIN REACH. PT IS BACK ON TELE SINCE HIS HR RANGES FROM 90'S-150'S THROUGHOUT SHIFT. HE DOES HAVE A HX OF ATRIAL FLUTTER. PT DENIES SOB, CHEST PAIN, OR PALPATATIONS. HE DOES HAVE A PACEMAKER PRIOR TO ADMISSION. THE PLAN IS TO GO TO [facility] TOM[facility].
[2020-11-09 03:50] LABS: BASOPHILS ABSOLUTE AUTO 0.04 K/mm3 (0.00-0.23); BASOPHILS PERCENT AUTO 1 % (0-2); EOSINOPHILS ABSOLUTE AUTO 0.23 K/mm3 (0.00-0.68); EOSINOPHILS PERCENT AUTO 4 % (0-6); Hematocrit 27.6 % (37.0-53.0); Hemoglobin 8.6 g/dL (13.5-17.5); IMMATURE GRAN ABSOLUTE AUTO 0.08 K/mm3 (0.00-0.10); IMMATURE GRAN PERCENT AUTO 1 % (0-1); LYMPHOCYTES PERCENT AUTO 18 % (21-46); MONOCYTES ABSOLUTE AUTO 0.78 K/mm3 (0.16-1.47); MONOCYTES PERCENT AUTO 13 % (4-13); Mean Corpuscular HGB Conc 31.2 g/dL (31.5-36.5); Mean Corpuscular Volume 100 fL (80-100); Mean Platelet Volume 9.8 fL (9.1-12.4); NEUTROPHILS PERCENT AUTO 63 % (41-73); Platelet Count 219 K/mm3 (150-400); RDW Coefficient Variation 14.2 % (11.7-14.2); RDW Standard Deviation 51.2 fL (35.1-46.3); Red Blood Cell Count 2.77 M/mm3 (4.30-5.90); White Blood Cell Count 6.03 K/mm3 (4.00-11.30)
[2020-11-09 04:07] LABS: Albumin, Blood 2.1 g/dL (3.4-5.0); Anion Gap 5 mmol/L (6-16); Blood Urea Nitrogen 59 mg/dL (8-24); Bun/Creatinine Ratio 20.8 (12.0-20.0); CO2, Blood 25 mmol/L (21-32); Calcium, Blood 9.3 mg/dL (8.5-10.1); Chloride, Blood 117 mmol/L (98-108); Creatinine, Blood 2.84 mg/dL (0.60-1.20); Glomerular Filtration Rate 23 (60-); Glucose, Blood 150 mg/dL (70-99); Phosphorus, Blood 3.7 mg/dL (2.5-4.9); Potassium, Blood 5.2 mmol/L (3.5-5.5); Sodium, Blood 147 mmol/L (136-145)
--- NOTE | 2020-11-09 04:59 | NUR ---
SHIFT SUMMARY POD25 R ZACARIAS HIP FX REPAIR, POD20 EGD, A/O X4 W/ SLIGHTLY SLURRED SPEECH AT BASELINE, VSS, TOLERATING FULL LIQUID DIET, PASSING FLATUS, AMBULATES WELL W/ 1 PERSON MOD ASSIST. [facility]. CALL LIGHT IN REACH, WILL CONTINUE TO MONITOR AND REPORT TO ONCOMING DAY RN.
--- NOTE | 2020-11-09 09:46 | NUR ---
Pt working with Shima from PT at time of visit. Followed Pt and Shima with recliner chair as Pt ambulated out to [facility] per request from Shima. Shima reports Pt has shown significant improvement and SNF will be recommended. No other concerns reported at this time. Dr Contreras has signed POLST. Obtained copy of POLST and delivered to medical records. Original POLST placed in Pt's chart to return home with Pt upon D/C. Palliative Care will remain available.
--- NOTE | 2020-11-09 13:52 | NUR ---
DC'D TELE PER ORDERS.
--- NOTE | 2020-11-09 14:03 | NUR ---
REPORTED OFF TO KAYLA HILLS RN.
--- NOTE | 2020-11-09 15:52 | NUR ---
1450 ASSUMED CARE OF PATIENT. PT SITTING IN CHAIR VISITING WITH FRIEND. NECTAR THICK ENSURE GIVEN PER REQUEST
--- NOTE | 2020-11-09 17:57 | NUR ---
PT SITTING IN CHAIR AT THIS TIME. TAKING THICKENED LIQUIDS WITHOUT CHOKING OR COUGHING. PT CHEERFUL, TELLS ME HE HOPES TO TRANSFER TO [facility] IN THE NEXT FEW DAYS
[2020-11-10 05:12] LABS: Hematocrit 28.6 % (37.0-53.0); Hemoglobin 8.9 g/dL (13.5-17.5)
[2020-11-10 05:24] LABS: Albumin, Blood 2.2 g/dL (3.4-5.0); Anion Gap 5 mmol/L (6-16); Blood Urea Nitrogen 58 mg/dL (8-24); Bun/Creatinine Ratio 20.9 (12.0-20.0); CO2, Blood 25 mmol/L (21-32); Chloride, Blood 116 mmol/L (98-108); Creatinine, Blood 2.78 mg/dL (0.60-1.20); Glomerular Filtration Rate 23 (60-); Glucose, Blood 129 mg/dL (70-99); Phosphorus, Blood 4.1 mg/dL (2.5-4.9); Potassium, Blood 5.2 mmol/L (3.5-5.5); Sodium, Blood 146 mmol/L (136-145)
--- NOTE | 2020-11-10 06:44 | NUR ---
SUMMARY PT ALERT AND INTERACTIVE TONIGHT.PT MOBILITY MUCH IMPROVED.TOLERATING APPLESAUCE FOR MEDS.VERB PLEASED HE WAS ABLE TO SLEEP SOME.
[2020-11-10 10:46] LABS: Influenza A, PCR Negative (NEGATIVE); Influenza B, PCR Negative (NEGATIVE); Resp Syncytial Virus, PCR Negative (NEGATIVE); SARS-Cov-2 (COVID-19) PCR, MMC Negative (NEGATIVE)
--- NOTE | 2020-11-10 12:00 | NUR ---
report called to [facility]/transport at this time.
== END 2020-11-10 12:01 | DRG 521 ==
LOC: ER 18:44 → ICUE 18:45 → ERHOLD 18:45 → SURS 18:45 → MEDS 18:45 → SURS 10-15 09:28 → ICUE 10-18 13:25 → SURS 10-20 14:33 → PCU 10-22 15:01 → SURS 10-28 16:39
PROVIDERS: Anesthesiology; Family Medicine; Internal Medicine; Internal Medicine Gastroenterology; Nurse Practitioner Acute Care; Orthopaedic Surgery; Physician Assistant; ADMIT Hospitalist
PROC: 0SRR01A Replacement of Right Hip Joint, Femoral Surface with Metal Synthetic Substitute, Uncemented, Open Approach (ICD-10-PCS; principal; 2020-10-15 08:00)
PROC: 0DJ08ZZ Inspection of Upper Intestinal Tract, Via Natural or Artificial Opening Endoscopic (ICD-10-PCS; 2020-10-20)
PROC: 30233N1 Transfusion of Nonautologous Red Blood Cells into Peripheral Vein, Percutaneous Approach (ICD-10-PCS; 2020-10-20)
DX: S72.031A Displaced midcervical fracture of right femur, initial encounter for closed fracture (principal); J69.0 Pneumonitis due to inhalation of food and vomit; K25.4 Chronic or unspecified gastric ulcer with hemorrhage; E44.0 Moderate protein-calorie malnutrition; E87.0 Hyperosmolality and hypernatremia; E87.2 Acidosis; I48.20 Chronic atrial fibrillation, unspecified; K22.10 Ulcer of esophagus without bleeding; K56.0 Paralytic ileus; N17.9 Acute kidney failure, unspecified; N18.5 Chronic kidney disease, stage 5; I12.0 Hypertensive chronic kidney disease with stage 5 chronic kidney disease or end stage renal disease; Q60.0 Renal agenesis, unilateral; D62 Acute posthemorrhagic anemia; Z20.828 Contact with and (suspected) exposure to other viral communicable diseases; W19.XXXA Unspecified fall, initial encounter; F32.9 Major depressive disorder, single episode, unspecified; E11.22 Type 2 diabetes mellitus with diabetic chronic kidney disease; D63.1 Anemia in chronic kidney disease; D50.0 Iron deficiency anemia secondary to blood loss (chronic); D69.6 Thrombocytopenia, unspecified; E83.39 Other disorders of phosphorus metabolism; E83.41 Hypermagnesemia; E87.70 Fluid overload, unspecified; G47.33 Obstructive sleep apnea (adult) (pediatric); I48.0 Paroxysmal atrial fibrillation; J44.9 Chronic obstructive pulmonary disease, unspecified; N31.9 Neuromuscular dysfunction of bladder, unspecified; Z87.891 Personal history of nicotine dependence; Z86.73 Personal history of transient ischemic attack (TIA), and cerebral infarction without residual deficits; E11.43 Type 2 diabetes mellitus with diabetic autonomic (poly)neuropathy; K31.84 Gastroparesis; Z95.3 Presence of xenogenic heart valve; Z95.810 Presence of automatic (implantable) cardiac defibrillator; Z85.51 Personal history of malignant neoplasm of bladder; R54 Age-related physical debility; Z68.29 Body mass index [BMI] 29.0-29.9, adult
CPT/HCPCS: 0241U; 36415; 36430; 51701; 51702; 71045; 71046; 73502; 74018; 76770; 80048; 80053; 80069; 81001; 82570; 82728; 82784; 83540; 83550; 83735; 83880; 84100; 84156; 84165; 84295; 84478; 85014; 85018; 85025; 85027; 85610; 86334; 86850; 86900; 86901; 86920; 86923; 87040; 87086; 88305; 88311; 92526; 92610; 93005; 93010; 93306; 94660; 94762; 96374-59; 96375-59; 96376-59; 97110; 97116; 97161; 97530; 99285-25; A9270; A9270-GY; C1751; C1776; C9113; J0171; J0456; J0690; J0696; J0735; J0780; J0881; J1100; J1170; J1430; J1885; J1940; J2370; J2405; J2550; J2704; J2765; J2795; J3010; J3411; J7030; J7042; J7050; J7070; J7120; P9016

== ENCOUNTER 2020-12-15 17:00 | Observation (INO) | payer OTHER, MEDICARE ==
[~2020-12-15] VITALS: Ht 172.7 cm; Wt 88.9 kg
[~2020-12-15 17:00] MED LIST changes: +AMLO10 PO; +DORZOLAMIDE-TIM10 ML BOTHEYES; +ELIQUIS2.5 MG PO; +FURO20 PO; +Lopressor 25 mg25 MG PO; +ONDA4ODT SL; +Terazosin HCl10 MG PO; +Vitamin B-121000 MCG PO; +ZYRTEC10 M2 PO
[2020-12-15] MEDS ORDERED: DILTIAZEM 24HR120 M2 PO (17:17)
[2020-12-15] MEDS ORDERED: DILTIAZEM 24HR180 M4 PO (17:17)
[2020-12-15] MEDS ORDERED: METO5A PO (17:18)
[2020-12-15] MEDS ORDERED: TIMDOROPSO BOTHEYES (17:18)
[2020-12-15] MEDS ORDERED: MELA3 PO (17:18)
[2020-12-15] MEDS ORDERED: PANT40 PO (17:19)
[2020-12-15] MEDS ORDERED: SUCR1 PO (17:19)
[2020-12-15] MEDS ORDERED: TAMS.4ER PO (17:19)
[2020-12-15] MEDS ORDERED: MIRT15ST PO (17:19)
[2020-12-15 17:34] LABS: BASOPHILS ABSOLUTE AUTO 0.02 K/mm3 (0.00-0.23); BASOPHILS PERCENT AUTO 0 % (0-2); EOSINOPHILS ABSOLUTE AUTO 0.19 K/mm3 (0.00-0.68); EOSINOPHILS PERCENT AUTO 4 % (0-6); Hemoglobin 9.2 g/dL (13.5-17.5); IMMATURE GRAN ABSOLUTE AUTO 0.06 K/mm3 (0.00-0.10); IMMATURE GRAN PERCENT AUTO 1 % (0-1); LYMPHOCYTES ABSOLUTE AUTO 0.78 K/mm3 (0.84-5.20); LYMPHOCYTES PERCENT AUTO 15 % (21-46); MONOCYTES ABSOLUTE AUTO 0.55 K/mm3 (0.16-1.47); MONOCYTES PERCENT AUTO 10 % (4-13); Mean Corpuscular HGB 29.9 pg (26.0-34.0); Mean Corpuscular HGB Conc 31.7 g/dL (31.5-36.5); Mean Corpuscular Volume 94 fL (80-100); Mean Platelet Volume 9.2 fL (9.1-12.4); NEUTROPHILS ABSOLUTE AUTO 3.77 K/mm3 (1.96-9.15); NEUTROPHILS PERCENT AUTO 70 % (41-73); Platelet Count 213 K/mm3 (150-400); RDW Coefficient Variation 14.3 % (11.7-14.2); RDW Standard Deviation 48.7 fL (35.1-46.3); Red Blood Cell Count 3.08 M/mm3 (4.30-5.90); White Blood Cell Count 5.37 K/mm3 (4.00-11.30)
[2020-12-15 17:46] LABS: Albumin, Blood 2.6 g/dL (3.4-5.0); Albumin/Globulin Ratio 0.8 (0.8-1.8); Bilirubin, Total 0.4 mg/dL (0.1-1.0); Bun/Creatinine Ratio 22.5 (12.0-20.0); Calcium, Blood 8.8 mg/dL (8.5-10.1); Creatinine, Blood 3.38 mg/dL (0.60-1.20); Globulin, Blood 3.4 g/dL (2.2-4.0); Potassium, Blood 3.7 mmol/L (3.5-5.5)
[2020-12-15 18:41] LABS: Influenza A, PCR Negative (NEGATIVE); Influenza B, PCR Negative (NEGATIVE); Resp Syncytial Virus, PCR Negative (NEGATIVE); SARS-Cov-2 (COVID-19) PCR, MMC Negative (NEGATIVE)
[2020-12-15 21:32] LABS: Source, Urine Catheter
[2020-12-15 21:34] LABS: Bilirubin, Urine Neg (Neg); Blood, Urine 1+ (Neg); Glucose Qualitative, Urine 2+ (Neg); Ketones, Urine Neg (Neg); Leukocyte Esterase, Urine 1+ (Neg); Nitrite, Urine Neg (Neg); Protein, Urine 3+ (Neg); Specific Gravity, Urine 1.015 (1.003-1.022); Urobilinogen, Urine NORM (Normal)
[2020-12-15 21:35] LABS: Appearance, Urine Clear (Clear); Color, Urine Yellow (P-Yellow)
[2020-12-15 21:48] LABS: Amorphous Light (0-Heavy); Bacteria Few /hpf; Granular Casts 0-2 /lpf (0); Red Blood Cells, Urine 0-2 /hpf (0-2); Squamous Epithelial Cells Few /hpf (Few)
[2020-12-16] MEDS ORDERED: ACET325 PO (00:54)
[2020-12-16] MEDS ORDERED: ALBU90OI INH (00:55)
[2020-12-16] MEDS ORDERED: BISA10S PR (00:56)
[2020-12-16] MEDS ORDERED: BISA5EC PO (00:56)
[2020-12-16] MEDS ORDERED: ARTIFICIAL TEAR15 M2 BOTHEYES (00:57)
[2020-12-16] MEDS ORDERED: DILT180 PO (00:58)
[2020-12-16] MEDS ORDERED: DILT120 PO (00:59)
[2020-12-16] MEDS ORDERED: TIMDOROPSO BOTHEYES (01:01)
[2020-12-16] MEDS ORDERED: VENOFER IV (01:02)
[2020-12-16] MEDS ORDERED: LACT PO (01:03)
[2020-12-16] MEDS ORDERED: GLYDO11 ML UR (01:04)
[2020-12-16] MEDS ORDERED: MELA3 PO (01:04)
[2020-12-16] MEDS ORDERED: METO5A PO (01:06)
[2020-12-16] MEDS ORDERED: MIRT15 PO (01:06)
[2020-12-16] MEDS ORDERED: CERTAVITE SENI1 EACH PO (01:07)
[2020-12-16] MEDS ORDERED: NYSTATIN15 GM TOP (01:08)
[2020-12-16] MEDS ORDERED: PANT40 PO (01:09)
[2020-12-16] MEDS ORDERED: MIRALAX17 GM PO (01:09)
[2020-12-16] MEDS ORDERED: SENN187 PO ×2 (01:09→01:10)
[2020-12-16] MEDS ORDERED: NASAL SPRAY88 ML (01:11)
[2020-12-16] MEDS ORDERED: Carafate1 GM/10 ML PO (01:11)
[2020-12-16] MEDS ORDERED: TAMS.4ER PO (01:12)
--- NOTE | 2020-12-16 05:08 | NUR ---
SHIFT SUMMARY PT WAS A NEW ADMIT DURING THE NIGHT, ARRIVING ON THE FLOOR AT 0013. HE WAS ADMITTED FOR [facility] FROM [facility], AND WAS GIVEN 1 UNIT PRBCS PRIOR TO ARRIVAL AT [facility]. PT IS A&O X 3, ABLE TO AMBULATE 1PA WITH A FWW, WITH SOME DECONDITIONING. NO C/O ACUTE PAIN, NAUSEA OR SOB. VITAL SIGNS STABLE. NO ACUTE CHANGES IN PT CONDITION NOTED SINCE ADMISSION. WILL CONTINUE TO MONITOR AND TREAT PER EMAR UNTIL HAND OFF TO DAY SHIFT RN.
[2020-12-16 05:46] LABS: Hematocrit 25.6 % (37.0-53.0); Hemoglobin 8.2 g/dL (13.5-17.5); Mean Corpuscular HGB 29.8 pg (26.0-34.0); Mean Corpuscular Volume 93 fL (80-100); Mean Platelet Volume 9.3 fL (9.1-12.4); Platelet Count 178 K/mm3 (150-400); RDW Coefficient Variation 14.4 % (11.7-14.2); RDW Standard Deviation 48.7 fL (35.1-46.3); Red Blood Cell Count 2.75 M/mm3 (4.30-5.90); White Blood Cell Count 4.45 K/mm3 (4.00-11.30)
[2020-12-16 05:59] LABS: Albumin, Blood 2.4 g/dL (3.4-5.0); Anion Gap 7 mmol/L (6-16); Blood Urea Nitrogen 75 mg/dL (8-24); CO2, Blood 27 mmol/L (21-32); Calcium, Blood 8.5 mg/dL (8.5-10.1); Chloride, Blood 103 mmol/L (98-108); Creatinine, Blood 3.41 mg/dL (0.60-1.20); Glomerular Filtration Rate 18 (60-); Glucose, Blood 113 mg/dL (70-99); Phosphorus, Blood 4.2 mg/dL (2.5-4.9); Potassium, Blood 3.6 mmol/L (3.5-5.5); Sodium, Blood 137 mmol/L (136-145)
--- NOTE | 2020-12-16 11:24 | NUR ---
Pastoral care visitation conducted. Pt was sitting beside his bed upon entrance. He reciprocated cordial salutations and appeared slightly despondent. Pt gave a report of his current situation and proceeded to divulge his current thoughts and emotions subsequently. He states that his arlen is important to him and relays that his social capital is sparse. Pastoral encouragement, empathic listening, and validating feedback were all extended. I will remain availalbe prospectively for further pastoral support.
--- NOTE | 2020-12-16 11:28 | NUR ---
Spoke with Perla Abel, Dr Stevens, and discussed case prior to visiting with Pt. Pt wishes to change his code status to DNR and may benefit from completing new POLST. Pt sitting in chair upon arrival. Pt is A&OX4 and denies pain at this time. Pt denies anxiety, nausea at this time. Pt reports mild but manageable dyspnea. Engaged in therapeutic discussion regarding wishes for life sustaining measures. Pt reports wanting to be a DNR. Educated on life sustaining measures and assessed Pt's understanding of DNR. Pt V/U. Assisted Pt with completing POLST with wishes of DNR and Limited Treatment. Pt expresses appreciation of visit and reports no other concerns at this time. Obtain MD signature on POLST. Obtained copy of POLST and delivered to medical records. Placed original POLST in Pt's belonging bag to return home with Pt. Palliative Care will remain available.
--- NOTE | 2020-12-16 18:41 | NUR ---
SHIFT SUMMARY PT AXO, PLEASANT AND COOPERATIVE WITH CARE. CODE STATUS CHANGED THIS SHIFT TO DNR. PT DENIES PAIN. VSS THOUGH BP WITH AFTERNOON VITALS ELEVATED. PT UP WITH 1 ASSIST AND FWW. STOOL GUIAC SENT, SEE LAB. BED IN LOW POSITION, CALL LIGHT WITHIN REACH.
--- NOTE | 2020-12-16 19:00 | NUR ---
ASSUMED CARE RECEIVED REPORT FROM NINA GALICIA. PT SITTING UP IN CHAIR, ASSISTED TO BATHROOM AND TO BED. STEADY GAIT. NO ACUTE DISTRESS NOTED. BROUGHT WARM BLANKETS AND SITUATED IN BED. DENIES SOB. CALL LIGHT, POSSESSIONS IN REACH, CONTINUE TO MONITOR.
--- NOTE | 2020-12-16 23:25 | NUR ---
SPOKE TO MINGO RODRIGUES REGARDING PT'S ELEVATED BP'S AND CLARIFIED PT'S HEPARIN ORDERED TID. NO NEW ORDERS RECEIVED. CONTINUE TO MONITOR.
--- NOTE | 2020-12-17 04:31 | NUR ---
SHIFT SUMMARY PT ASLEEP, NO ACUTE NEEDS OR DISTRESS NOTED. NO ACUTE CHANGES IN CONDITION OVERNIGHT, 02 SATS REMAIN STABLE ON CPAP AND RA. ENCOURAGED TO REPOSITION TOLERATED. AMBULATED W/O DIFFICULTY. CALL LIGHT, POSSESSIONS IN REACH, BED IN LOW POSITION WITH ALARMS ON. CONTINUE TO MONITOR UNTIL REPORT GIVEN TO DAY RN.
[2020-12-17 05:26] LABS: BASOPHILS ABSOLUTE AUTO 0.01 K/mm3 (0.00-0.23); BASOPHILS PERCENT AUTO 0 % (0-2); EOSINOPHILS ABSOLUTE AUTO 0.16 K/mm3 (0.00-0.68); EOSINOPHILS PERCENT AUTO 4 % (0-6); Hematocrit 23.9 % (37.0-53.0); Hemoglobin 7.8 g/dL (13.5-17.5); IMMATURE GRAN ABSOLUTE AUTO 0.03 K/mm3 (0.00-0.10); IMMATURE GRAN PERCENT AUTO 1 % (0-1); LYMPHOCYTES ABSOLUTE AUTO 0.73 K/mm3 (0.84-5.20); LYMPHOCYTES PERCENT AUTO 20 % (21-46); MONOCYTES PERCENT AUTO 14 % (4-13); Mean Corpuscular HGB 30.8 pg (26.0-34.0); Mean Corpuscular HGB Conc 32.6 g/dL (31.5-36.5); Mean Corpuscular Volume 95 fL (80-100); Mean Platelet Volume 9.3 fL (9.1-12.4); NEUTROPHILS ABSOLUTE AUTO 2.21 K/mm3 (1.96-9.15); NEUTROPHILS PERCENT AUTO 61 % (41-73); Platelet Count 174 K/mm3 (150-400); RDW Coefficient Variation 14.1 % (11.7-14.2); RDW Standard Deviation 48.1 fL (35.1-46.3); Red Blood Cell Count 2.53 M/mm3 (4.30-5.90); White Blood Cell Count 3.64 K/mm3 (4.00-11.30)
[2020-12-17 05:57] LABS: Calcium, Blood 8.4 mg/dL (8.5-10.1); Creatinine, Blood 3.1 mg/dL (0.60-1.20); Potassium, Blood 3.6 mmol/L (3.5-5.5)
[2020-12-17 09:13] LABS: Stool Occult Blood Guaiac 1 Neg (Neg)
--- NOTE | 2020-12-17 17:58 | NUR ---
PT UP TO CHAIR THIS AM FOR MEALS AND HIS SISTER IN TO VISIT. NO C/O PAIN OR DISCOMFORT. NO ACUTE CHANGES NOTED THIS SHIFT, WILL CONTINUE TO MONITOR AND REPORT TO ONCOMING RN
--- NOTE | 2020-12-17 19:00 | NUR ---
ASSUMED CARE RECEIVED REPORT FROM NINA AGUIRRE. PT RESTING IN BED, IN NO ACUTE DISTRESS. NO ACUTE NEEDS ASSESSED AT THIS TIME. CALL LIGHT, POSSESSIONS IN REACH, BED IN LOW POSITION WITH ALARMS ON. CONTINUE TO MONITOR.
--- NOTE | 2020-12-18 04:02 | NUR ---
SHIFT SUMMARY PT ASLEEP, IN NO ACUTE DISTRESS. RESPS E/U, O2 SATS STABLE ON CPAP. VS REVIEWED, WNL. NO ACUTE CHANGES IN CONDITION NOTED T/O NIGHT, TEDS APPLIED AT HS, PER PT, HE DID NOT WEAR THEM DURING THE DAY. NO ACUTE NEEDS ASSESSED AT THIS TIME. CALL LIGHT, POSSESSIONS IN REACH, BED IN LOW POSITION WITH ALARMS ON. CONTINUE TO MONITOR UNTIL REPORT GIVEN TO DAY RN.
[2020-12-18 05:21] LABS: Hematocrit 24.1 % (37.0-53.0); Hemoglobin 7.9 g/dL (13.5-17.5); Mean Corpuscular HGB 31.1 pg (26.0-34.0); Mean Corpuscular HGB Conc 32.8 g/dL (31.5-36.5); Mean Corpuscular Volume 95 fL (80-100); Mean Platelet Volume 8.9 fL (9.1-12.4); Platelet Count 156 K/mm3 (150-400); RDW Coefficient Variation 13.9 % (11.7-14.2); RDW Standard Deviation 48.1 fL (35.1-46.3); Red Blood Cell Count 2.54 M/mm3 (4.30-5.90); White Blood Cell Count 3.34 K/mm3 (4.00-11.30)
[2020-12-18 05:32] LABS: Calcium, Blood 8.6 mg/dL (8.5-10.1); Creatinine, Blood 2.89 mg/dL (0.60-1.20); Potassium, Blood 3.6 mmol/L (3.5-5.5)
--- NOTE | 2020-12-18 16:55 | NUR ---
SHIFT SUMMARY PT AWAKE DURING SHIFT REPORT. RESTING QUIETLY ON CPAP. NO C/O. [facility]. PT STABLE AND WAITING PLACEMENT AT THIS TIME. VERY PLEASANT GENTLEMAN, CALLS FOR ASSIST NEEDED. DR VASQUEZ IN TO SEE PT THIS AM. IV IRON ORDERED WHILE PT HERE TO ASSIST WITH ANEMIA. PT UP WITH 1P SBA TO BTHRM NEEDED. VISITOR TO THIS AFTERNOON. DENINED FURTHER NEEDS. PT WATCHING FOOTBALL. CALL LT IN REACH.
--- NOTE | 2020-12-18 19:25 | NUR ---
ASSUMED CARE RECIEVED BEDSIDE REPORT FROM NINA FIELDS; PT A&O X 4; SMILING AND JOKING W/ STAFF; VSS; DENIES CHEST PAIN; NO DISTRESS NOTED; CALL LIGHT IN REACH; BED IN LOWEST POSITION.
--- NOTE | 2020-12-19 06:40 | NUR ---
SHIFT SUMMARY PT A&O X4; PLEASANT & COMPLIANT W/ CARE; VSS; DENIES CHEST PAIN; O2 SATS >93 ON RA; DYSPNEA NOTED W/ EXERSION; SBA FOR BRP W/ FWW AND GAIT BELT; CPAP IN PLACE FOR SLEEPING; NO DISTRESS NOTED; CALL LIGHT IN REACH; BED IN LOWEST POSITION; WILL CONTINUE TO MONITOR CLOSELY UNTIL HAND OFF TO DAY SHIFT RN.
[2020-12-19 08:10] LABS: Hematocrit 25.8 % (37.0-53.0); Hemoglobin 8.3 g/dL (13.5-17.5); Mean Corpuscular HGB 30.6 pg (26.0-34.0); Mean Corpuscular HGB Conc 32.2 g/dL (31.5-36.5); Mean Corpuscular Volume 95 fL (80-100); Mean Platelet Volume 8.9 fL (9.1-12.4); Platelet Count 139 K/mm3 (150-400); RDW Standard Deviation 48.3 fL (35.1-46.3); Red Blood Cell Count 2.71 M/mm3 (4.30-5.90); White Blood Cell Count 3.34 K/mm3 (4.00-11.30)
--- NOTE | 2020-12-19 17:35 | NUR ---
SHIFT SUMMARY PT HAS BEEN UP IN CHAIR FOR ALL MEALS. WORKED WITH PHYSICAL THERAPY AND AMBULATED IN [place]. PT ALSO AMBULATED TO DOOR AND BACK TO CHAIR BEFORE DINNER. NO COMPLAINTS OF PAIN OR SHORTNESS OF BREATH THIS SHIFT. NO ACUTE CHANGES AT THIS TIME. CALL LIGHT IN REACH. WILL CONTINUE TO MONITOR AND REPORT TO ONCOMING RN.
--- NOTE | 2020-12-20 04:53 | NUR ---
SHIFT SUMMARY NO ACUTE CHANGES THIS SHIFT, PT HAD DIFFICULTY FALLING ASLEEP- ORDER REC FOR MELATONIN, FINALLY FELL ASLEEP AROUND 0245, NO OTHER C/O ANY KIND, PT SLEEPING AT THIS TIME, CALL LIGHT IN REACH, WILL CONT TO MONITOR UNTIL REPORT GIVEN TO DAY RN.
[2020-12-20 05:21] LABS: Hematocrit 24.3 % (37.0-53.0); Hemoglobin 7.6 g/dL (13.5-17.5); Mean Corpuscular HGB 29.7 pg (26.0-34.0); Mean Corpuscular HGB Conc 31.3 g/dL (31.5-36.5); Mean Corpuscular Volume 95 fL (80-100); Mean Platelet Volume 8.8 fL (9.1-12.4); Platelet Count 128 K/mm3 (150-400); RDW Coefficient Variation 13.7 % (11.7-14.2); RDW Standard Deviation 47.8 fL (35.1-46.3); Red Blood Cell Count 2.56 M/mm3 (4.30-5.90); White Blood Cell Count 3.49 K/mm3 (4.00-11.30)
[2020-12-20 05:46] LABS: Bun/Creatinine Ratio 14.6 (12.0-20.0); Calcium, Blood 8.3 mg/dL (8.5-10.1); Creatinine, Blood 2.67 mg/dL (0.60-1.20); Potassium, Blood 3.4 mmol/L (3.5-5.5)
--- NOTE | 2020-12-20 17:11 | NUR ---
SHIFT SUMMARY PT HAS HAD NO ACUTE CHANGES THIS SHIFT. PT UP TO CHAIR FOR ALL MEALS AND HAS AMBULATED TO DOOR WITHOUT DIFFICULTY THIS SHIFT. WAITING FOR CONSULT WITH DR. DICK AND PLACEMENT AT [facility]. PT HAS A GOOD APPETITE. NO COMPLAINTS. CALL LIGHT IN REACH. WILL CONTINUE TO MONITOR.
--- NOTE | 2020-12-21 04:33 | NUR ---
SHIFT SUMMARY PT SLEPT WELL THIS EVENING. DID NOT TOLERATE CPAP, REQUESTING TO LEAVE IT OFF. PT GETS SOB WITH EXERTION BUT RECOVERS WELL WITH REST. PT REPORTS THAT THIS IS "NORMAL" FOR HIM. PT ON RA THROUGHOUT THE NIGHT. CONT OX ON WITH O2 SATS READING IN THE MID 90'S THROUGHOUT THE NIGHT. NO STOOL THIS EVENING. +[address]LE[address] DICK IN TO SEE PT WITH NO NEW ORDERS NOTED. VITAL SIGNS STABLE. NO ACUTE CHANGES THIS SHIFT. WILL CONTINUE TO MONITOR AND REPORT TO DAY RN.
[2020-12-21 05:32] LABS: Hematocrit 25.5 % (37.0-53.0); Mean Corpuscular HGB 29.9 pg (26.0-34.0); Mean Corpuscular HGB Conc 31.4 g/dL (31.5-36.5); Mean Corpuscular Volume 95 fL (80-100); Platelet Count 130 K/mm3 (150-400); RDW Coefficient Variation 13.9 % (11.7-14.2); RDW Standard Deviation 48.6 fL (35.1-46.3); Red Blood Cell Count 2.68 M/mm3 (4.30-5.90); White Blood Cell Count 3.09 K/mm3 (4.00-11.30)
[2020-12-21 06:05] LABS: Bun/Creatinine Ratio 13.7 (12.0-20.0); Calcium, Blood 8.5 mg/dL (8.5-10.1); Creatinine, Blood 2.63 mg/dL (0.60-1.20); Potassium, Blood 3.5 mmol/L (3.5-5.5)
--- NOTE | 2020-12-21 17:55 | NUR ---
SHIFT SUMMARY UP FOR EACH MEAL. HAS DENIED PAIN OR RESP DISTRESS TODAY. DOES SAY MILD SOB WITH ACTIVITY. NO SIGNIFICANT CHANGE SINCE ASSUMING CARE THIS MORNING. WILL REPORT TO ONCOMING SHIFT.
--- NOTE | 2020-12-22 04:01 | NUR ---
SHIFT SUMMARY ADMITTED FOR ANEMIA. DNR CODE. 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 PLAN IS FOR [facility] PLACEMENT. [facility]. CHRONIC CONSTIPATION, PRIORITIZE BOWEL CARE. CPAP @ PM. COOPERATIVE W/CARE. NO NEW CONCERNS THIS SHIFT.
[2020-12-22 05:04] LABS: Hematocrit 24.7 % (37.0-53.0); Hemoglobin 7.9 g/dL (13.5-17.5); Mean Corpuscular HGB 30.4 pg (26.0-34.0); Mean Corpuscular Volume 95 fL (80-100); Mean Platelet Volume 8.9 fL (9.1-12.4); Platelet Count 110 K/mm3 (150-400); RDW Coefficient Variation 13.9 % (11.7-14.2); RDW Standard Deviation 48.1 fL (35.1-46.3); White Blood Cell Count 3.28 K/mm3 (4.00-11.30)
--- NOTE | 2020-12-22 18:42 | NUR ---
SHIFT SUMMARY PT UP FOR MEALS TO CHAIR. 1 PERSON ASSIST TO BATHROOM USING FWW. 1 UNIT OF PRBC GIVEN AND PT TOLERATED WITH NO PROBLEM. HAS DENIED PAIN OR RESP DISTRESS. L ARM APPEARS TO HAVE DECREASED IN SIZE SINCE IV LASIX GIVEN THIS MORNING. HAS WALKED TO DOOR AND BACK TO BED SEVERAL TIMES TODAY.
--- NOTE | 2020-12-22 19:00 | NUR ---
ASSUMED CARE RECEIVE REPORT FROM NINA WEST. PT RESTING COMFORTABLY, IN NO ACUTE DISTRESS, RESP E/U; 02 SATS STABLE ON RA. NO ACUTE NEEDS ASSESSED AT THIS TIME. CALL LIGHT, POSSESSIONS IN REACH, BED IN LOW POSITION WITH ALARMS ON. CONTINUE TO MONITOR.
--- NOTE | 2020-12-22 21:20 | NUR ---
SPOKE TO MINGO RODRIGUES REGARDING PT'S SUSTAINED HTN. NO NEW ORDERS RECEIVED, CONTINUE TO MONITOR.
[2020-12-23 05:44] LABS: Hematocrit 28.4 % (37.0-53.0); Mean Corpuscular HGB 30.6 pg (26.0-34.0); Mean Corpuscular HGB Conc 31.7 g/dL (31.5-36.5); Mean Corpuscular Volume 97 fL (80-100); Mean Platelet Volume 9.3 fL (9.1-12.4); Platelet Count 105 K/mm3 (150-400); RDW Coefficient Variation 14.7 % (11.7-14.2); RDW Standard Deviation 51.7 fL (35.1-46.3); Red Blood Cell Count 2.94 M/mm3 (4.30-5.90); White Blood Cell Count 3.57 K/mm3 (4.00-11.30)
--- NOTE | 2020-12-23 06:00 | NUR ---
SHIFT SUMMARY PT ASLEEP, IN NO ACUTE DISTRESS. WORE CPAP T/O NIGHT. VS REVIEWED, BP'S IMPROVING; PT ASYMPTOMATIC. AFEBRILE. AMBULATED TO BATHROOM WITH 1 ASSIST AND FWW, TOLERATED WELL. NO ACUTE NEEDS ASSESSED AT THIS TIME. CALL LIGHT, POSSESSIONS IN REACH, BED IN LOW POSITION. CONTINUE TO MONITOR, REPORT OFF TO ONCOMING RN.
[2020-12-23 06:02] LABS: Bun/Creatinine Ratio 13.3 (12.0-20.0); Calcium, Blood 8.1 mg/dL (8.5-10.1); Creatinine, Blood 2.55 mg/dL (0.60-1.20); Potassium, Blood 3.7 mmol/L (3.5-5.5)
--- NOTE | 2020-12-23 07:07 | NUR ---
oob to bathroom to void pt wanting to amb in room with fww stated did not get much sleep due to lasix
--- NOTE | 2020-12-23 08:54 | NUR ---
dr carrington by to see pt
[2020-12-23] MEDS ORDERED: FURO40 PO (11:32)
[2020-12-23] MEDS ORDERED: FERSU300 PO (11:32)
[2020-12-23] MEDS ORDERED: METO25 PO (11:32)
--- NOTE | 2020-12-23 11:55 | NUR ---
covid swab sent to lab pt assisted to bathroom amb in room then up in chair with fww
--- NOTE | 2020-12-23 12:40 | NUR ---
pt req notary to sign a will family at bedside with paperwork charge nurse notified pt to transfer to [facility] at 1400
[2020-12-23 12:43] LABS: Influenza A, PCR Negative (NEGATIVE); Influenza B, PCR Negative (NEGATIVE); Resp Syncytial Virus, PCR Negative (NEGATIVE); SARS-Cov-2 (COVID-19) PCR, MMC Negative (NEGATIVE)
--- NOTE | 2020-12-23 14:38 | NUR ---
[facility] report called
== END 2020-12-23 14:30 ==
LOC: ER 17:00 → MEDS 17:01 → EDPENDDIS 12-23 11:08 → ENPENDDIS 12-23 11:08 → MEDS 12-23 14:30
PROVIDERS: Internal Medicine; Nurse Practitioner Acute Care; Physician Assistant; ADMIT Family Medicine
DX: D64.9 Anemia, unspecified (principal); I12.9 Hypertensive chronic kidney disease with stage 1 through stage 4 chronic kidney disease, or unspecified chronic kidney disease; E11.22 Type 2 diabetes mellitus with diabetic chronic kidney disease; N18.4 Chronic kidney disease, stage 4 (severe); K22.10 Ulcer of esophagus without bleeding; Z20.822 Contact with and (suspected) exposure to COVID-19; I87.2 Venous insufficiency (chronic) (peripheral); K59.00 Constipation, unspecified; I48.0 Paroxysmal atrial fibrillation; Z74.09 Other reduced mobility; Z87.891 Personal history of nicotine dependence; Z95.0 Presence of cardiac pacemaker
CPT/HCPCS: 0241U; 36415; 36430; 71045; 80048; 80053; 80069; 81001; 82270; 82728; 83540; 83550; 85025; 85027; 86850; 86900; 86901; 86923; 93005; 93010; 94762; 96372; 96374; 96375; 96376; 97110; 97116; 97161; 97530; 99285-25; A9270; G0378; J1644; J1940; J2916; J7050; P9016

== ENCOUNTER → 2021-02-24 | Outpatient (CLI) | payer OTHER, MEDICARE ==
[~2021-02-24] MED LIST changes: +ALBU90OI INH; +ARTIFICIAL TEAR15 M2 BOTHEYES; +BISA10S PR; +BISA5EC PO; +CERTAVITE SENI1 EACH PO; +Carafate1 GM/10 ML PO; +DILT120 PO; +DILT180 PO; +DILTIAZEM 24HR120 M2 PO; +DILTIAZEM 24HR180 M4 PO; +FERSU300 PO; +FURO40 PO; +GLYDO11 ML UR; +LACT PO; +MELA3 PO; +METO25 PO; +METO5A PO; +MIRALAX17 GM PO; +MIRT15 PO; +MIRT15ST PO; +NASAL SPRAY88 ML; +NYSTATIN15 GM TOP; +SENN187 PO; +SUCR1 PO; +TAMS.4ER PO; +TIMDOROPSO BOTHEYES; +VENOFER IV
[2021-02-24 18:47] LABS: Hematocrit 31.7 % (37.0-53.0); Hemoglobin 10.6 g/dL (13.5-17.5); Mean Corpuscular HGB 32.9 pg (26.0-34.0); Mean Corpuscular HGB Conc 33.4 g/dL (31.5-36.5); Mean Corpuscular Volume 98 fL (80-100); Mean Platelet Volume 9.5 fL (9.1-12.4); Platelet Count 101 K/mm3 (150-400); RDW Coefficient Variation 15.6 % (11.7-14.2); RDW Standard Deviation 56.4 fL (35.1-46.3); Red Blood Cell Count 3.22 M/mm3 (4.30-5.90); White Blood Cell Count 4.97 K/mm3 (4.00-11.30)
== END | disposition home or self-care (01) ==
LOC: LAB 16:30 → LAB HH 16:30
PROVIDERS: Family Medicine
DX: N18.4 Chronic kidney disease, stage 4 (severe) (principal); K22.10 Ulcer of esophagus without bleeding
CPT/HCPCS: 85027

== ENCOUNTER 2021-03-14 01:05 | Emergency (ER) | payer OTHER, MEDICARE ==
[~2021-03-14] VITALS: Ht 177.8 cm; Wt 88.9 kg
== END 2021-03-14 02:29 | disposition home or self-care (01) ==
LOC: ER 01:05
DX: R45.1 Restlessness and agitation (principal); Z79.899 Other long term (current) drug therapy
CPT/HCPCS: 99285; A9270

== ENCOUNTER 2022-04-07 08:00 | Inpatient (IN) | payer OTHER ==
[~2022-04-07] VITALS: Ht 172.7 cm; Wt 62.4 kg
[2022-04-07 08:42] LABS: BASOPHILS ABSOLUTE AUTO 0.03 K/mm3 (0.00-0.23); BASOPHILS PERCENT AUTO 1 % (0-2); EOSINOPHILS ABSOLUTE AUTO 0.15 K/mm3 (0.00-0.68); EOSINOPHILS PERCENT AUTO 2 % (0-6); Hemoglobin 9.3 g/dL (13.5-17.5); IMMATURE GRAN ABSOLUTE AUTO 0.03 K/mm3 (0.00-0.10); IMMATURE GRAN PERCENT AUTO 1 % (0-1); LYMPHOCYTES ABSOLUTE AUTO 0.65 K/mm3 (0.84-5.20); LYMPHOCYTES PERCENT AUTO 10 % (21-46); MONOCYTES ABSOLUTE AUTO 0.83 K/mm3 (0.16-1.47); MONOCYTES PERCENT AUTO 13 % (4-13); Mean Corpuscular HGB 30.9 pg (26.0-34.0); Mean Corpuscular HGB Conc 32.1 g/dL (31.5-36.5); Mean Corpuscular Volume 96 fL (80-100); Mean Platelet Volume 8.2 fL (9.1-12.4); NEUTROPHILS ABSOLUTE AUTO 4.75 K/mm3 (1.96-9.15); NEUTROPHILS PERCENT AUTO 74 % (41-73); Platelet Count 185 K/mm3 (150-400); RDW Coefficient Variation 13.2 % (11.7-14.2); RDW Standard Deviation 46.7 fL (35.1-46.3); Red Blood Cell Count 3.01 M/mm3 (4.30-5.90); White Blood Cell Count 6.44 K/mm3 (4.00-11.30)
[2022-04-07 08:58] LABS: Bilirubin, Total 0.3 mg/dL (0.1-1.0); Bun/Creatinine Ratio 24.7 (12.0-20.0); Calcium, Blood 9.2 mg/dL (8.5-10.1); Creatinine, Blood 2.43 mg/dL (0.60-1.20); Globulin, Blood 2.9 g/dL (2.2-4.0); Potassium, Blood 4.6 mmol/L (3.5-5.5); Total Protein, Blood 5.9 g/dL (6.4-8.2)
[2022-04-07 16:41] LABS: Anti-Xa UFH, PHA Monitoring 0.38 IU/mL; International Normalized Ratio 1.17; Prothrombin Time Results 12.2 Sec (9.7-11.5)
[2022-04-08 04:20] LABS: Hematocrit 25.3 % (37.0-53.0); Hemoglobin 7.9 g/dL (13.5-17.5); Mean Corpuscular HGB Conc 31.2 g/dL (31.5-36.5); Mean Corpuscular Volume 99 fL (80-100); Mean Platelet Volume 8.5 fL (9.1-12.4); Platelet Count 169 K/mm3 (150-400); RDW Coefficient Variation 13.2 % (11.7-14.2); RDW Standard Deviation 47.4 fL (35.1-46.3); Red Blood Cell Count 2.55 M/mm3 (4.30-5.90)
[2022-04-08 04:48] LABS: Alanine Aminotransfer (ALT/SGP 20 U/L (12-78); Albumin, Blood 2.3 g/dL (3.4-5.0); Albumin/Globulin Ratio 0.9 (0.8-1.8); Alk Phos 52 U/L (50-136); Anion Gap 6 mmol/L (6-16); Aspartate Aminotrans (AST/SGOT 20 U/L (12-37); Bilirubin, Total 0.3 mg/dL (0.1-1.0); Blood Urea Nitrogen 68 mg/dL (8-24); Bun/Creatinine Ratio 24.6 (12.0-20.0); CHOL/HDL RATIO 3.3; CO2, Blood 22 mmol/L (21-32); Calcium, Blood 8.7 mg/dL (8.5-10.1); Chloride, Blood 110 mmol/L (98-108); Cholesterol 111 mg/dL (50-200); Creatinine, Blood 2.76 mg/dL (0.60-1.20); Globulin, Blood 2.6 g/dL (2.2-4.0); Glomerular Filtration Rate 22 (60-); Glucose, Blood 111 mg/dL (70-99); HDL Cholesterol 34 mg/dL (>39); LDL/HDL RATIO 1.8; Low Density Lipoprotein Chol 60 mg/dL (0-110); Potassium, Blood 4.5 mmol/L (3.5-5.5); Sodium, Blood 138 mmol/L (136-145); Total Protein, Blood 4.9 g/dL (6.4-8.2); Triglycerides 86 mg/dL (30-160); Very Low Density Lipoprot Chol 17 mg/dL (6-32)
[2022-04-09 04:54] LABS: BASOPHILS ABSOLUTE AUTO 0.03 K/mm3 (0.00-0.23); BASOPHILS PERCENT AUTO 0 % (0-2); EOSINOPHILS ABSOLUTE AUTO 0.14 K/mm3 (0.00-0.68); EOSINOPHILS PERCENT AUTO 2 % (0-6); Hematocrit 25.8 % (37.0-53.0); Hemoglobin 8.4 g/dL (13.5-17.5); IMMATURE GRAN ABSOLUTE AUTO 0.05 K/mm3 (0.00-0.10); IMMATURE GRAN PERCENT AUTO 1 % (0-1); LYMPHOCYTES PERCENT AUTO 15 % (21-46); MONOCYTES ABSOLUTE AUTO 1.02 K/mm3 (0.16-1.47); MONOCYTES PERCENT AUTO 14 % (4-13); Mean Corpuscular HGB 31.3 pg (26.0-34.0); Mean Corpuscular HGB Conc 32.6 g/dL (31.5-36.5); Mean Corpuscular Volume 96 fL (80-100); Mean Platelet Volume 8.3 fL (9.1-12.4); NEUTROPHILS PERCENT AUTO 68 % (41-73); Platelet Count 145 K/mm3 (150-400); RDW Coefficient Variation 13.3 % (11.7-14.2); RDW Standard Deviation 47.3 fL (35.1-46.3); Red Blood Cell Count 2.68 M/mm3 (4.30-5.90); White Blood Cell Count 7.24 K/mm3 (4.00-11.30)
[2022-04-09 05:14] LABS: Albumin, Blood 2.5 g/dL (3.4-5.0); Albumin/Globulin Ratio 0.9 (0.8-1.8); Bilirubin, Total 0.5 mg/dL (0.1-1.0); Calcium, Blood 9.1 mg/dL (8.5-10.1); Creatinine, Blood 3.08 mg/dL (0.60-1.20); Globulin, Blood 2.9 g/dL (2.2-4.0); Potassium, Blood 4.7 mmol/L (3.5-5.5); Total Protein, Blood 5.4 g/dL (6.4-8.2)
[2022-04-10 04:48] LABS: BASOPHILS ABSOLUTE AUTO 0.03 K/mm3 (0.00-0.23); BASOPHILS PERCENT AUTO 1 % (0-2); EOSINOPHILS ABSOLUTE AUTO 0.14 K/mm3 (0.00-0.68); EOSINOPHILS PERCENT AUTO 2 % (0-6); Hematocrit 25.6 % (37.0-53.0); Hemoglobin 8.2 g/dL (13.5-17.5); IMMATURE GRAN ABSOLUTE AUTO 0.06 K/mm3 (0.00-0.10); IMMATURE GRAN PERCENT AUTO 1 % (0-1); LYMPHOCYTES ABSOLUTE AUTO 0.97 K/mm3 (0.84-5.20); LYMPHOCYTES PERCENT AUTO 15 % (21-46); MONOCYTES ABSOLUTE AUTO 0.96 K/mm3 (0.16-1.47); MONOCYTES PERCENT AUTO 15 % (4-13); Mean Corpuscular HGB 31.1 pg (26.0-34.0); Mean Corpuscular Volume 97 fL (80-100); Mean Platelet Volume 8.4 fL (9.1-12.4); NEUTROPHILS ABSOLUTE AUTO 4.17 K/mm3 (1.96-9.15); NEUTROPHILS PERCENT AUTO 66 % (41-73); Platelet Count 154 K/mm3 (150-400); RDW Coefficient Variation 13.3 % (11.7-14.2); Red Blood Cell Count 2.64 M/mm3 (4.30-5.90); White Blood Cell Count 6.33 K/mm3 (4.00-11.30)
[2022-04-10 05:19] LABS: Bun/Creatinine Ratio 25.9 (12.0-20.0); Calcium, Blood 9.2 mg/dL (8.5-10.1); Creatinine, Blood 3.16 mg/dL (0.60-1.20)
[2022-04-11 07:44] LABS: BASOPHILS ABSOLUTE AUTO 0.03 K/mm3 (0.00-0.23); BASOPHILS PERCENT AUTO 1 % (0-2); EOSINOPHILS ABSOLUTE AUTO 0.14 K/mm3 (0.00-0.68); EOSINOPHILS PERCENT AUTO 2 % (0-6); Hemoglobin 8.3 g/dL (13.5-17.5); IMMATURE GRAN ABSOLUTE AUTO 0.03 K/mm3 (0.00-0.10); IMMATURE GRAN PERCENT AUTO 1 % (0-1); LYMPHOCYTES ABSOLUTE AUTO 1.08 K/mm3 (0.84-5.20); LYMPHOCYTES PERCENT AUTO 18 % (21-46); MONOCYTES ABSOLUTE AUTO 0.84 K/mm3 (0.16-1.47); MONOCYTES PERCENT AUTO 14 % (4-13); Mean Corpuscular HGB 31.3 pg (26.0-34.0); Mean Corpuscular HGB Conc 31.9 g/dL (31.5-36.5); Mean Corpuscular Volume 98 fL (80-100); Mean Platelet Volume 8.7 fL (9.1-12.4); NEUTROPHILS ABSOLUTE AUTO 3.89 K/mm3 (1.96-9.15); NEUTROPHILS PERCENT AUTO 65 % (41-73); Platelet Count 163 K/mm3 (150-400); RDW Coefficient Variation 13.4 % (11.7-14.2); RDW Standard Deviation 47.7 fL (35.1-46.3); Red Blood Cell Count 2.65 M/mm3 (4.30-5.90); White Blood Cell Count 6.01 K/mm3 (4.00-11.30)
[2022-04-11 07:56] LABS: Bun/Creatinine Ratio 24.9 (12.0-20.0); Calcium, Blood 9.3 mg/dL (8.5-10.1); Creatinine, Blood 3.33 mg/dL (0.60-1.20); Potassium, Blood 5.1 mmol/L (3.5-5.5)
[2022-04-11] MEDS ORDERED: ASPI81CH PO (12:52)
[2022-04-11] MEDS ORDERED: ATOR40TA PO (12:52)
[2022-04-11] MEDS ORDERED: ISOSORBIDE MONO60 MG PO (12:53)
[2022-04-11] MEDS ORDERED: PANT40 PO (12:53)
[2022-04-11] MEDS ORDERED: Nitrostat0.4 MG SL (12:54)
[2022-04-11] MEDS ORDERED: ELIQUIS2.5 MG PO (12:54)
[2022-04-11] MEDS ORDERED: MIRT15 PO (12:55)
[2022-04-11 13:46] LABS: Influenza A, PCR NEGATIVE (NEGATIVE); Influenza B, PCR NEGATIVE (NEGATIVE); Resp Syncytial Virus, PCR NEGATIVE (NEGATIVE); SARS-Cov-2 (COVID-19) PCR, MMC NEGATIVE (NEGATIVE)
== END 2022-04-11 16:03 | DRG 281 ==
LOC: ER 08:00 → MEDS 16:01
PROVIDERS: Emergency Medicine; Internal Medicine; Internal Medicine Cardiovascular Disease; ADMIT Internal Medicine
DX: I21.4 Non-ST elevation (NSTEMI) myocardial infarction (principal); I48.19 Other persistent atrial fibrillation; I48.92 Unspecified atrial flutter; N18.4 Chronic kidney disease, stage 4 (severe); Z20.822 Contact with and (suspected) exposure to COVID-19; Z66 Do not resuscitate; I12.9 Hypertensive chronic kidney disease with stage 1 through stage 4 chronic kidney disease, or unspecified chronic kidney disease; E11.22 Type 2 diabetes mellitus with diabetic chronic kidney disease; I48.0 Paroxysmal atrial fibrillation; D63.1 Anemia in chronic kidney disease; I87.2 Venous insufficiency (chronic) (peripheral); G47.33 Obstructive sleep apnea (adult) (pediatric); N40.0 Benign prostatic hyperplasia without lower urinary tract symptoms; E66.9 Obesity, unspecified; Z68.28 Body mass index [BMI] 28.0-28.9, adult; Z95.2 Presence of prosthetic heart valve; Z95.0 Presence of cardiac pacemaker; Z85.51 Personal history of malignant neoplasm of bladder; Z90.5 Acquired absence of kidney; Z87.891 Personal history of nicotine dependence; Z91.048 Other nonmedicinal substance allergy status; Z79.899 Other long term (current) drug therapy
CPT/HCPCS: 0241U; 36415; 71045; 80048; 80053; 80061; 82947; 83690; 83880; 84443; 84484; 85025; 85027; 85520; 85610; 85730; 93005; 93010; 93306; 94660; 94760; 94762; 97110; 97116; 97162; 97166; 97530; 97535; 99285-25; A9270; J1644; J7040